=== PATIENT | male | born 1960 | race Caucasian/White ===

== ENCOUNTER 2018-07-13 05:18 | Inpatient (IN) ==
--- NOTE | 2018-06-12 12:38 | PAT Medication Instructions ---
Medication Instructions Date of Service June 12, 2018 Home Medications aspirin [Aspir-81] 81 mg PO QAM losartan-hydrochlorothiazide 0.5 tab PO QAM omega 1-sda-qfh-fish oil [Fish Oil] 3 cap PO QAM STOP taking 2 weeks before surgery (or as soon as possible if surgery is within 2 weeks) omega 5-lxm-veg-fish oil [Fish Oil] 3 cap PO QAM DO NOT take the morning of surgery losartan-hydrochlorothiazide 0.5 tab PO QAM Take morning of surgery With a small sip of water, OTHERWISE NOTHING TO EAT OR DRINK AFTER MIDNIGHT: aspirin [Aspir-81] 81 mg PO QAM Other Notes If you have any questions please call us at [phone] or [phone] or [phone] or [phone]
--- NOTE | 2018-06-12 12:58 | Anesthesiology Consultation ---
Date of Service June 12, 2018 Assessment & Plan (1) Encounter for pre-operative examination: Chart Review Chart Review: Acceptable Risk for Surgery and Patient seen in Pre Admission Testing Discussed case with Dr. Chua. OK to proceed. Consults Requested none Teaching & Discussion Pre-Anesthesia Teaching/Discussion Notes: Instructed NPO after midnight before surgery, except medications with 15 cc of water. Medication instructions provided according to the PAT guidelines. History Surgery Operation Date: 07/13/18 08:20 Proposed Procedures p Left Anterior Total Hip Arthroplasty - Jadon Sims DO Height/Weight Height: 5 ft 7 in Weight: 85 kg Allergies Allergy/AdvReac Type Severity Reaction Status Date / Time Pignfhp-Kab-Kyc Reductase Allergy MUSCLE Verified 06/05/18 07:45 Inhibitor ACHES Medications Home Medications Medication Instructions Recorded Confirmed Last Taken aspirin [Aspir-81] 81 mg PO QAM 06/05/18 06/05/18 Unknown losartan-hydrochlorothiazide 0.5 tab PO QAM 06/05/18 06/05/18 Unknown omega 7-uaf-jsx-fish oil [Fish Oil] 3 cap PO QAM 06/05/18 06/05/18 Unknown Past Medical History Medical History Hypertension Waldenstrom's disease FOLLOWS WITH PHYSICIAN AT [facility] ([place]) NEXT APPT IS 07/10/18 Past Surgical History Surgical History H/O basal cell carcinoma excision History of colonoscopy History of herniorrhaphy X3 History of tonsillectomy Past Anesthesia History No Hx of Anesthesia Complications and No Family Hx of Anesthesia Complications History of PONV No Motion Sickness Screening History of Motion Sickness: No Social History Smoking Status: Former smoker tobacco type: cigarettes Smoking cigarettes per day: QUIT 20 YEARS AGO Do You Dip or Chew Tobacco: No Hx Alcohol Use: Yes alcohol intake frequency: a few times a month Hx Substance Use: No substance use type: does not use Exercise / Class Metabolic Activity II 4-5 Yardwork/Stairs/Walk up hill (Works in a restaraunt. Able to climb [place], although currently slowed down due to hip pain. Denies CP or SOB. ) Review of Systems Patient denies chest pain, shortness of breath, dyspnea on exertion, reflux, cough, wheezing, palpitations. +Joint pain (Hips, generalized arthritis) Physical Exam Vital Signs BP: 127/80 P: 65 R: 16 T: 97.9 SPO2: 98% on RA ENMT Thyromental Distance: > or= 3.5 Finger Breadths (4) Mallampati Class: I Neck normal visual inspection, trachea midline and + facial hair ((Advised)); neck extension not limited Respiratory normal respiratory effort Auscultation: lungs clear to auscultation bilaterally Cardiovascular Rate/Rhythm: regular rate and regular rhythm Heart Sounds: no murmur Vessels: no carotid bruit Neurologic moves all extremities Psychiatric Orientation: alert and oriented x 3 Testing Electrocardiogram Date: 06/12/18 Findings: + NSR @ (61) Chest X-Ray Date: 06/12/18 FINDINGS: The cardiac and mediastinal contours are normal. There is no evidence of focal pulmonary consolidation. There is no evidence of failure. No pleural effusions are visualized. There is an 11 mm rounded opacity at the right lung base on the PA film. This is not visualized in the lateral film and therefore may represent a nipple shadow. A repeat study with nipple markers is recommended. IMPRESSION: 11 mm opacity at the right lung base, possibly representing a nipple shadow. A repeat study with nipple markers is recommended. Surgeon's office sent over records from 2013 when patient was following with pulmonology. Patient has a known RLL nodule that has been followed and is stable. Echocardiogram Date: 05/14/13 EF: 68% LV Function: normal RWMA: + none Other Findings: no LVH and no diastolic dysfunction Valvular Disease: + MR ([place]) Normal mitral valve structure. Mild mitral regurgitation is present. Normal tricuspid valve structure and function. Trace physiological tricuspid regurgitation is present. Estimated right ventricular systolic pressure is 74 mmHg. The left ventricle is normal in size, wall thickness, wall motion, and contractility. Left ventricular diastolic filling pattern is normal. Other Testing Laboratory Results Blood Type AB Positive 06/12/18 13:16 Antibody Screen NEGATIVE 06/12/18 13:16 [facility] 06/29/18 WBC: 5.03 H/H: 13.1 L/ 39.9 L PLATELETS: 261 SODIUM: 143 POTASSIUM: 4.3 CHLORIDE: 103 CO2: 29 BUN: 24 H CREATININE: 0.7 GLUCOSE: 104 PT: 13.0 PTT: 34 INR: 1.00
--- NOTE | 2018-06-12 13:35 | XRay Report ---
XR chest Pre-admission PA/Lat CLINICAL HISTORY: Preoperative chest COMPARISON STUDY: No previous studies for comparison. FINDINGS: The cardiac and mediastinal contours are normal. There is no evidence of focal pulmonary co nsolidation. There is no evidence of failure. No pleural effusions are visualized.[ There is an 11 mm rounded opacity at the right lung base on the PA film. This is not visualized in the lateral film an d therefore may represent a nipple shadow. A repeat study with nipple markers is recommended. IMPRESSION: 11 mm opacity at the right lung base, possibly representing a nipple shadow. A repeat curt dy with nipple markers is recommended. Electronically signed by: Seferino Wright M.D. 06/12/2018 1:33 PM
--- NOTE | 2018-07-10 15:33 | History & Physical Report ---
Date of Service July 10, 2018 Assessment & Plan (1) Osteoarthritis of left hip: We will proceed with a left anterior total hip arthroplasty. Postoperatively he will be started on aspirin for DVT prophylaxis. He will be kept in the hospital overnight for postop medical management. He plans to decide outpatient physical therapy with case management. Present on Admission?: Yes History of Present Illness Chief Complaint: Primary osteoarthritis of the left hip Primary Care Provider: James William MD Guillermo is a pleasant 58-year-old male who is been dealing with chronic increasing left hip and groin pain. X-rays and clinical examination have been diagnostic for primary Janelle arthritis of the left hip. After failing conservative treatment, he has elected proceed with a left anterior total hip arthroplasty. Allergies Allergy/AdvReac Type Severity Reaction Status Date / Time Ktiehus-Mta-Slk Reductase Allergy MUSCLE Verified 06/05/18 07:45 Inhibitor ACHES Home Medications Home Medications Medication Instructions Recorded Confirmed Type aspirin [Aspir-81] 81 mg PO QAM 06/05/18 06/05/18 History losartan-hydrochlorothiazide 0.5 tab PO QAM 06/05/18 06/05/18 History omega 0-dbd-uin-fish oil [Fish Oil] 3 cap PO QAM 06/05/18 06/05/18 History Past Med/Surg History Medical History Hypertension Waldenstrom's disease FOLLOWS WITH PHYSICIAN AT [facility] ([place]) NEXT APPT IS 07/10/18 Surgical History H/O basal cell carcinoma excision History of colonoscopy History of herniorrhaphy X3 History of tonsillectomy Social History Preferred Language: Panamanian Communication Ability: Effective Market Gardener Required: No Beliefs That Will Affect Care: None Current Living Situation: Spouse Other Information That Helps Us Care for You: No Feels Safe at Home: Yes Safety Concerns: Feels Safe At This Time Smoking Status: Former smoker Tobacco Type: cigarettes Cigarettes Per Day: QUIT 20 YEARS AGO Do You Dip or Chew Tobacco: No Second Hand Exposure: No Tobacco Cessation Education Requested by Patient: No Hx Alcohol Use: Yes Hx Substance Use: No Review of Systems All systems reviewed & are unremarkable except as noted in HPI & below Physical Exam Constitutional: WD/WN, vitals as above Eyes: PERRL, conjunctivae normal, anicteric sclerae ENMT: external ear and nose normal, oropharynx normal Neck: trachea midline, no thyromegaly Respiratory: normal respiratory effort Cardiovascular: RRR, no murmur, no edema Gastrointestinal (Abdomen): normal bowel sounds, soft, nontender, no hepatosplenomegaly Musculoskeletal: Physical examination of the left hip reveals decreased range of motion with flexion, internal and external rotation. There is significant groin pain with forced internal rotation of the hip his leg lengths are essentially equal. Psychiatric: A+Ox3, euthymic affect Results & Data Diagnostic Findings Radiographs of the left hip and pelvis demonstrate advanced osteoarthritis with joint space narrowing osteophyte formation and dtix-ba-hrcu articulation.
[2018-07-13] MEDS ORDERED: ROPIVACAINE 0.5% HCL/PF 150 MG, BUPIVACAINE 0.5% MPF 30 ML, EPINEPHrine 30MG/30ML (OR U... INFIL SCH (06:00)
[2018-07-13] MEDS ORDERED: FAMOTIDINE 20 MG TAB PO SCH (06:00)
[2018-07-13] MEDS ORDERED: CEFAZOLIN 2000MG 2,000 MG/15 ML SYR IV SCH (06:00)
[2018-07-13] MEDS ORDERED: GABAPENTIN 300 MG x 2 PO SCH (06:00)
[2018-07-13] MEDS ORDERED: TRANEXAMIC ACID 1,000 MG **IV Pre-op IV SCH (06:00)
[2018-07-13] MEDS ORDERED: LR 60ML/HR IV SCH (06:00)
[2018-07-13] MEDS ORDERED: ACETAMINOPHEN 500 MG TAB PO SCH (06:00)
[2018-07-13] MEDS ORDERED: LR 500ML BOLUS, THEN 15ML/HR IV SCH (06:00)
[2018-07-13] MEDS ORDERED: ONDANSETRON INJ 2 MG/ML 2 ML VIAL IV PRN ×2 (06:19→10:09)
[2018-07-13] MEDS ORDERED: ATROPINE SULFATE 0.1 MG/ML 10ML SYR IV PRN (06:19)
[2018-07-13] MEDS ORDERED: PHENYLEPHRINE 100MCG/ML 5ML SYR IV PRN (06:19)
[2018-07-13] MEDS ORDERED: ePHEDrine sulfate 50 MG/ML AMP IV PRN (06:19)
[2018-07-13] MEDS ORDERED: HYDROmorphone INJ 1 MG/ML SYRINGE IV PRN (06:19)
[2018-07-13] MEDS ORDERED: PROMETHAZINE HCL 12.5 MG in SODIUM CHLORIDE 0.9% 50 ML IV PRN (06:19)
[2018-07-13] MEDS ORDERED: fentaNYL citrate 100 MCG/2 ML VIAL IV PRN (06:19)
[2018-07-13] MEDS ORDERED: BUPIVACAINE 0.5 % 5 MG/1 ML PF 10ML VIAL ONE (06:26)
[2018-07-13] MEDS ORDERED: TRANEXAMIC ACID 1,000 MG **IV Intra-op IV SCH (06:30)
[2018-07-13] MEDS ORDERED: ORTHO JOINT ANESTHETIC ONE (06:30)
[2018-07-13] MEDS ORDERED: POVIDONE-IODINE OP SOLN 30 ML BTL ONE (06:30)
[2018-07-13] MEDS ORDERED: LIDOCAINE HCL 2% 2 ML VIAL/AMP(20MG/ML) INFIL ONE (06:34)
[2018-07-13] MEDS ORDERED: PROPOFOL IV EMULSION 10 MG/ML 20 ML VIAL IV ONE ×3 (06:34→08:18)
[2018-07-13] MEDS ORDERED: MIDAZOLAM HCL 1 MG/ML 2ML VIAL ONE ×2 (06:35→07:13)
[2018-07-13] MEDS ORDERED: fentaNYL citrate 100 MCG/2 ML VIAL ONE (06:35)
--- NOTE | 2018-07-13 06:50 | History & Physical Bridge Note ---
Date of Service July 13, 2018 History & Physical Bridge Note I have examined the patient, reviewed the History & Physical and in the interval since the performance of the History & Physical I have noted the following changes of clinical significance: no changes noted
[2018-07-13] MEDS ORDERED: ONDANSETRON INJ 2 MG/ML 2 ML VIAL ONE (07:17)
[2018-07-13] MEDS ORDERED: DEXAMETHASONE SOD INJ 4 MG/ML VIAL ONE (07:17)
[2018-07-13] MEDS ORDERED: ePHEDrine sulfate 50 MG/ML SYR ONE (07:32)
--- NOTE | 2018-07-13 08:43 | Operative Report ---
Post Operative Report Pre & Post Diagnosis Operation Date: 07/13/18 07:00 Pre-Op Diagnosis: LEFT HIP DEGENERATIVE JOINT DISEASE Post-Op Diagnosis: LEFT HIP DEGENERATIVE JOINT DISEASE Procedure Operation Date: 07/13/18 07:00 Actual Procedures p Left Anterior Total Hip Arthroplasty(Left) - Jadon Sims DO Surgeon Jadon Sims DO Data Processing Specialist Jadon Chan PAC Estimated Blood Loss 300 Findings Consistent with Post-Op Diagnosis Specimens Left femoral head Complications none Disposition Disposition: Recovery Room Indications Guillermo is a pleasant 58-year-old male who presented my office with chronic increasing left hip and groin pain. X-rays and clinical examination were di agnostic for primary osteoarthritis of the left hip. After failing conservative treatment, he elected to proceed with a left anterior total hip arthroplasty. Description of Procedure Implants used Biomet Taperloc total hip arthroplasty system with a size 12 standard offset Taperloc stem, a 52 mm G7 cup with a 25mm screw, an E1 polyethylene liner, a 36 mm ceramic head with a +3 neck. Patient arrived at the hospital for the above procedure. They were seen in the preoperative holding area and the operative extremity was identified and signed. They were given a spinal anesthetic. They were given a preoperative antibiotic and TXA. They were taken back To the operating room and laid on the table in the supine position. The leg was brought out through a Puristst leg positioner. The hip was then prepped and draped in sterile fashion. A timeout was done and the patient in upper extremities properly identified. An anterior approach was used. Dissection was taken down through the fascia and the tensor muscle belly was retracted laterally and the rectus was retracted medially. The circumflex vessels were identified and ligated. The capsule was then incised and tagged for later repair. The femoral neck was then cut and the femoral head was removed. The acetabulum was exposed. Time was spent doing a complete circumferential labral release. Sequential reaming of the acetabulum up to a size 51 reamer was done. Final reamings were done under fluoroscopy to ensure appropriate version. A Biomet 52 mm G7 cup was then impacted into place. A single 25 mm screw was placed. The E1 polyethylene liner was then snapped into place. Surrounding soft tissues were then injected with 100 cc of an orthopedic pain control cocktail. The proximal femur was then exposed. Sequential broaching up to a size 12 broach was done. Off that broach a size 36 head with a +3 neck was trialed. The hip was reduced and fluoroscopic images showed anatomic alignment of the implants in acceptable length. The broach was removed. The final size 12 standard offset Taperloc stem was then impacted into place. A ceramic 36 mm head with a +3 neck was then impacted into place in the hip was reduced. Final fluoroscopic images showed anatomic reduction of the hip. The capsule was then closed with #1 Vicryl suture. A dilute betadyne lavage was then done for 3 minutes. The joint was then irrigated with normal saline solution. The fascia was closed with #1 PDS suture. Skin was closed with 2-0 Vicryl, yfn, and a Pat VAC dressing. The patient was then transferred to a hospital bed and taken to the post anesthesia care unit in stable condition. They tolerated the procedure well. I attest to the content of the Intraoperative Record and any orders documented therein. Any exceptions are noted below.
--- NOTE | 2018-07-13 09:47 | XRay Report ---
XR hip 1V LT w pelvis CLINICAL HISTORY: Postop examination COMPARISON: Thyroid 2019 DISCUSSION: There are postsurgical changes of a total left hip arthroplasty. The femoral and acetabul ar components appear well seated. There is no dislocation. There are overlying skin yfn. There is soft tissue gas consistent with recent surgery. There are advanced arthritic changes present within the right hip. IMPRESSION: Postsurgical changes of a total left hip arthroplasty. Electronically signed by: Seferino Wright M.D. 07/13/2018 9:45 AM
--- NOTE | 2018-07-13 10:02 | Fluoroscopy Report ---
FL hip LT 1V CLINICAL HISTORY: LT ANTERIOR HIP ARTHROPLASTY COMPARISON STUDY: 2019 FLUOROSCOPY TIME: 33 seconds. NUMBER OF FLUOROSCOPIC IMAGES: 2 FINDINGS: 2 intraoperative fluoroscopic spot images were acquired during performance of a total left hip arthroplasty. Image #1 demonstrates surgical resection of left femoral head. There is a prostheti c acetabular cup. Image #2 demonstrates both femoral and acetabular components of the implant. There is no dislocation. IMPRESSION: Intraoperative fluoroscopic spot images obtained during a total left hip arthroplasty Electronically signed by: Seferino Wright M.D. 07/13/2018 10:01 AM
[2018-07-13] MEDS ORDERED: BISACODYL 10 MG SUPP PR PRN (10:09)
[2018-07-13] MEDS ORDERED: OXYCODONE HCL IR 5 MG TAB (IMMEDIATE RELEASE) PO PRN (10:09)
[2018-07-13] MEDS ORDERED: MAGNESIUM HYDROXIDE SUSP 30 ML UDC PO PRN (10:09)
[2018-07-13] MEDS ORDERED: METOCLOPRAMIDE HCL INJ 5 MG/ML 2 ML VIAL IV PRN (10:09)
[2018-07-13] MEDS ORDERED: NALOXONE HCL 0.4 MG/1 ML VIAL/CARP IV PRN (10:09)
[2018-07-13] MEDS ORDERED: HYDROmorphone INJ 0.5 MG/0.5 ML SYR IV PRN (10:09)
--- NOTE | 2018-07-13 10:24 | Anesthesiology Progress Note ---
Date of Service July 13, 2018 Anesthesia Post Procedure Vital Signs Vital Signs: Temp Pulse Pulse Resp BP Pulse Ox 07/13/18 10:00 36.3 C L 54 L 20 123/66 99 07/13/18 09:50 53 L 17 130/80 100 07/13/18 09:40 53 L 13 102/63 97 07/13/18 09:30 62 16 110/70 94 07/13/18 09:20 53 L 15 105/63 99 07/13/18 09:10 56 L 12 108/66 100 07/13/18 09:00 36 C L 60 13 110/52 L 100 07/13/18 05:43 36.4 C L 73 20 98 Pain Intensity Left Hip: Pain Intensity: 5 Transfer of Care Handoff Completed per policy Notes Mental Status: alert / awake / arousable Patient Amnestic to Procedure: Yes Nausea / Vomiting: adequately controlled Pain: adequately controlled Airway Patency, RR, SpO2: stable & adequate BP & HR: stable & adequate Neuraxial Anesthesia: was administered and sensory block is resolving Anesthetic Complications: no major complications apparent Notes: Awake, doing well, VSS.
[2018-07-13] MEDS ORDERED: SODIUM CHLORIDE 0.9% 1000ML 1,000 ML IV SCH (10:45)
[2018-07-13] MEDS: KETOROLAC 30 MG/ML VIAL IV SCH ×3 (11:17→22:19)
[2018-07-13] MEDS: DOCUSATE SODIUM 100 MG CAP PO SCH ×2 (11:17→20:56)
[2018-07-13] MEDS: ASPIRIN 81 MG ECTAB PO SCH ×2 (11:18→20:56)
[2018-07-13] MEDS: MULTIVITAMIN TAB PO SCH (11:18)
[2018-07-13] MEDS: LOSARTAN/HCTZ 50/12.5MG TAB PO SCH (11:18)
[2018-07-13] MEDS: ACETAMINOPHEN 500 MG TAB PO SCH ×2 (13:41→20:56)
[2018-07-13] MEDS: CEFAZOLIN 2000MG 2,000 MG/15 ML SYR IV SCH ×2 (14:31→22:19)
[2018-07-13] MEDS ORDERED: SENNA 8.6 MG TAB PO SCH (21:00)
[2018-07-14] MEDS: ACETAMINOPHEN 500 MG TAB PO SCH (05:05)
[2018-07-14] MEDS: KETOROLAC 30 MG/ML VIAL IV SCH ×2 (05:05→10:29)
[2018-07-14 06:35] LABS: Basophils # (auto) 0.01 K/uL (0-0.2); Basophils % (auto) 0.1 %; Eosinophils # (auto) 0.05 K/uL (0-0.5); Eosinophils % (auto) 0.3 %; Hematocrit (blood only) 33.4 % (42-52); Hemoglobin 11.2 g/dL (14.0-18.0); Immature Granulocytes # (auto) 0.05 K/uL (0.00-0.02); Immature Granulocytes % (auto) 0.3 %; Lymphocytes # (auto) 2.42 K/uL (1.2-3.4); Lymphocytes % (auto) 15.8 %; Mean Corpuscular Hgb Conc 33.5 g/dL (32-36); Mean Corpuscular Volume 91.8 fL (80-100); Mean Platelet Volume 9.2 fL (7.4-10.4); Monocytes # (auto) 1.97 K/uL (0.11-0.59); Monocytes % (auto) 12.9 %; Neutrophils # (auto) 10.77 K/uL (1.4-6.5); Neutrophils % (auto) 70.6 %; Platelet Count 222 K/uL (130-400); RDW Coefficient of Variation 13.8 % (11.5-14.5); RDW Standard Deviation 46.2 fL (36.4-46.3); Red Blood Count 3.64 M/uL (4.7-6.1); White Blood Count 15.27 K/uL (4.8-10.8)
[2018-07-14 07:07] LABS: Calcium 8.5 mg/dl (8.5-10.1); Creatinine Clr Calc Pharmacy 83.8 ml/min; Est GFR (African American) 97.4; Est GFR (Non-African American) 84.1; Potassium 4.2 mmol/L (3.5-5.1)
--- NOTE | 2018-07-14 07:12 | Orthopedic Progress Note ---
Date of Service July 14, 2018 Assessment & Plan (1) Osteoarthritis of left hip: Overall is doing very well. Is not having much pain in the left hip. He is been up and ambulating around the nurses station. He will be seen by physical therapy this morning for ambulation and range of motion exercises. He can be discharged home later today. He will follow-up with orthopedics in 2 weeks. He is going to discuss home or outpatient physical therapy with case management this morning. Present on Admission?: Yes Lizzie Li was seen and examined at bedside this morning. Overall he is doing extremely well. Is not having any pain in his left hip. He is happy with his progress at this point. He has been already ambulating around the nurses station. He has no complaints. Physical Exam Musculoskeletal: On physical examination of the left hip, the Pat VAC dressing is to suction. His leg lengths are equal. He is active dorsiflexion and plantarflexion of his left ankle. Sensations intact throughout. Results & Data Vital Signs (Past 12 Hours) Vital Signs Temp Pulse Resp BP Pulse Ox 07/14/18 04:00 36.6 C 70 18 109/67 98 07/13/18 23:08 36.5 C 60 16 107/70 99 Laboratory Results H & H 07/14/18 Range/Units 06:23 Hgb 11.2 L (14.0-18.0) g/dL Hct 33.4 L (42-52) % Diagnostic Findings Postoperative x-rays of the left hip show the prosthesis to be in anatomic alignment without any evidence of fracture, dislocation, or loosening.
--- NOTE | 2018-07-14 07:13 | Discharge Summary ---
Date of Service July 14, 2018 Admission HPI Per Admitting Provider Guillermo is a pleasant 58-year-old male who is been dealing with chronic increasing left hip and groin pain. X-rays and clinical examination have been diagnostic for primary Janelle arthritis of the left hip. After failing conservative treatment, he has elected proceed with a left anterior total hip arthroplasty. Specialty Data Orthopedic H & H 07/14/18 Range/Units 06:23 Hgb 11.2 L (14.0-18.0) g/dL Hct 33.4 L (42-52) % Discharge Data Consultations 07/14/18 08:00 Consult Case Management - Discharge Planning Routine Procedures Performed Operation Date: 07/13/18 07:00 Actual Procedures p Left Anterior Total Hip Arthroplasty(Left) - Jadon Sims DO Hospital Course (1) Osteoarthritis of left hip: On July 13, 2018 Guillermo arrived at [facility] and underwent a left anterior total hip arthroplasty without complication. He had a spinal anes thetic. Postoperatively he was started on aspirin for DVT prophylaxis and discharged to general orthopedic floors. His hospital course was uneventful. On postop day #1 his H&H was stable and his pain was well controlled. He was already walking around the nurses station. He was seen by physical therapy. He was then discharged to home. He will follow-up with orthopedics in 2 weeks. Discharge Instructions Home Medications Medication Instructions Recorded Confirmed aspirin [Aspir-81] 81 mg PO QAM 06/05/18 07/13/18 losartan-hydrochlorothiazide 0.5 tab PO QAM 06/05/18 07/13/18 omega 4-tzw-cln-fish oil [Fish Oil] 3 cap PO QAM 06/05/18 07/13/18 multivitamin [Multiple Vitamins] 1 tab PO DAILY 07/13/18 07/13/18 Previous Rx's Medication Instructions Recorded aspirin [Ecotrin Low Strength] 81 mg PO BID #84 tab 07/14/18 oxycodone 5 - 10 mg PO Q4H PRN #40 tab 07/14/18
--- NOTE | 2018-07-14 08:22 | Anesthesiology Progress Note ---
Date of Service July 14, 2018 Anesthesia Post Procedure Vital Signs Vital Signs: Temp Pulse Pulse Pulse Resp BP Pulse Ox 07/14/18 07:22 36.7 C 52 L 15 100/63 100 07/14/18 04:00 36.6 C 70 18 109/67 98 07/13/18 23:08 36.5 C 60 16 107/70 99 07/13/18 19:03 36.6 C 71 18 113/64 97 07/13/18 15:26 36.3 C L 59 L 18 110/66 98 07/13/18 12:15 64 16 103/65 97 07/13/18 11:05 61 16 108/70 99 07/13/18 10:45 57 L 16 107/68 100 07/13/18 10:15 36.5 C 56 L 18 116/79 94 07/13/18 10:00 36.3 C L 54 L 20 123/66 99 07/13/18 09:50 53 L 17 130/80 100 07/13/18 09:40 53 L 13 102/63 97 07/13/18 09:30 62 16 110/70 94 07/13/18 09:20 53 L 15 105/63 99 07/13/18 09:10 56 L 12 108/66 100 07/13/18 09:00 36 C L 60 13 110/52 L 100 Pain Intensity Left Hip: Pain Intensity: 5 Transfer of Care Handoff Completed per policy Notes Mental Status: alert / awake / arousable Patient Amnestic to Procedure: Yes Nausea / Vomiting: adequately controlled Pain: adequately controlled Airway Patency, RR, SpO2: stable & adequate BP & HR: stable & adequate Neuraxial Anesthesia: was administered and sensory block is resolving Anesthetic Complications: no major complications apparent Notes: POD #1. Doing well. Has been OOB, tolerating PO well. No complaints. VSS
[2018-07-14] MEDS ORDERED: OMEGA-3 (PURIFIED FISH OIL) 1 GM CAP PO SCH (09:00)
[2018-07-14] MEDS: ASPIRIN 81 MG ECTAB PO SCH (09:20)
[2018-07-14] MEDS: MULTIVITAMIN TAB PO SCH (09:20)
[2018-07-14] MEDS: DOCUSATE SODIUM 100 MG CAP PO SCH (09:20)
[2018-07-14] MEDS: LOSARTAN/HCTZ 50/12.5MG TAB PO SCH (09:23)
== END 2018-07-14 11:25 | disposition home or self-care (01) | DRG 470 ==
LOC: ASU 05:18 → PAT 05:18 → 3E 09:03

== ENCOUNTER 2018-11-09 05:11 | Inpatient (IN) ==
--- NOTE | 2018-10-23 16:36 | PAT Medication Instructions ---
Medication Instructions Date of Service October 23, 2018 Home Medications Medication Instructions Recorded oxycodone 5 - 10 mg PO Q4H PRN #40 tab 07/14/18 losartan-hydrochlorothiazide 0.5 tab PO QAM omega 3-jdu-hyv-fish oil [Fish Oil] 3 cap PO QAM multivitamin [Multiple Vitamins] 1 tab PO DAILY oxycodone 5 - 10 mg PO Q4H PRN aspirin [Ecotrin Low Strength] 81 mg PO QAM STOP taking 2 weeks before surgery (or as soon as possible if surgery is within 2 weeks) omega 6-bgu-hvk-fish oil [Fish Oil] 3 cap PO QAM DO NOT take the morning of surgery losartan-hydrochlorothiazide 0.5 tab PO QAM multivitamin [Multiple Vitamins] 1 tab PO DAILY Take morning of surgery With a small sip of water, OTHERWISE NOTHING TO EAT OR DRINK AFTER MIDNIGHT: oxycodone 5 - 10 mg PO Q4H PRN (okay to take up to 4 hours prior to surgery if needed) Take evening before surgery oxycodone 5 - 10 mg PO Q4H PRN (if needed) Other Notes If you have any questions please call us at [phone] or [phone] or [phone] or [phone]
--- NOTE | 2018-10-24 13:20 | Anesthesiology Consultation ---
Date of Service October 24, 2018 Assessment & Plan (1) Encounter for pre-operative examination: Chart Review Chart Review: Acceptable Risk for Surgery (pending preop testing (labs)) and Patient seen in Pre Admission Testing Teaching & Discussion Pre-Anesthesia Teaching/Discussion Notes: Instructed NPO after midnight before surgery,except medications with 15 cc of water. Medication instructions provided according to the PAT guidelines. History Surgery Operation Date: 11/09/18 10:00 Proposed Procedures p Right Anterior Hip Arthroplasty - Jadon Sims DO Height/Weight Height: 5 ft 7.5 in Weight: 83.1 kg Allergies Allergy/AdvReac Type Severity Reaction Status Date / Time Solnvac-Cjc-Mwm Reductase Allergy MUSCLE Verified 10/15/18 07:49 Inhibitor ACHES Medications Home Medications Medication Instructions Recorded Confirmed Last Taken losartan-hydrochlorothiazide 0.5 tab PO QAM 06/05/18 10/15/18 07/12/18 07:00 omega 9-agn-hvy-fish oil [Fish Oil] 3 cap PO QAM 06/05/18 10/15/18 06/28/18 07:00 multivitamin [Multiple Vitamins] 1 tab PO DAILY 07/13/18 10/15/18 07/12/18 07:00 oxycodone 5 - 10 mg PO Q4H PRN #40 tab 07/14/18 10/15/18 Unknown aspirin [Ecotrin Low Strength] 81 mg PO QAM 10/15/18 10/15/18 Unknown Past Medical History Medical History Hypertension Pulmonary nodule RLL (chronic dating back to 2013 per records) 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 ([place])- no medication at present time Exercise / Class Metabolic Activity II 4-5 Yardwork/Stairs/Walk up hill Past Surgical History Surgical History H/O basal cell carcinoma excision History of colonoscopy History of herniorrhaphy X3 - right and left inguinal History of left hip replacement 07/13/18: SAB x 1 at L3-L4 at [facility] History of tonsillectomy Patient developed fever 3 days after left hip replacement- determined to be cellulitis of left lower extremity- treated with antibiotics Past Anesthesia History No Hx of Anesthesia Complications and No Family Hx of Anesthesia Complications History of PONV No Hx of PONV and No Hx of Motion Sickness Social History Smoking Status: Never smoker tobacco type: cigarettes Smoking cigarettes per day: QUIT 20 YEARS AGO Do You Dip or Chew Tobacco: No Hx Alcohol Use: Yes Alcohol type: beer alcohol intake frequency: holidays/special occasions only Hx Substance Use: No substance use type: does not use Review of Systems Patient denies chest pain, shortness of breath, dyspnea on exertion, reflux, cough, wheezing, palpitations. Physical Exam Vital Signs VITALS BP 115/69 P 63 TEMP 98.3 SP02 97%RA RESP 16 PHYSICAL Full neck and c-spine range of motion. Full TMJ range of motion. TMD 3.5 finger breaths Mallampati Score 1 Dentition: missing molar Lungs: clear throughout to auscultation Cardiac: regular rate and rhythm, no murmurs noted Spine: normal Carotid arteries: negative bruit Extremities: no edema Testing Laboratory Results 10/03/18 WBC 6.95 H/H 12.6/40.7 PLATELETS 320 SODIUM 141 POTASSIUM 4.6 CHLORIDE 102 CO2 29 BUN 17 CREATININE 0.7 GLUCOSE 111 Electrocardiogram Date: 06/12/18 Findings: + NSR @ (61) Chest X-Ray Date: 07/16/18 No acute process. 11 mm opacity of the lateral right lung base re-demonstrated, possibly front desk representative of a nipple shadow. (Area consistent with known pulmonary nodule which has been under surveillance x years; per patient, advised that due to stability no further monitoring needed. PCP monitoring). Echocardiogram Date: 05/14/13 EF: 68% LV Function: normal RWMA: + none Other Findings: no LVH and no diastolic dysfunction Valvular Disease: + MR (Mild) Normal mitral valve structure. Mild mitral regurgitation is present. Normal tricuspid valve structure and function. Trace physiological tricuspid regurgitation is present. Estimated right ventricular systolic pressure is 74 mmHg. The left ventricle is normal in size, wall thickness, wall motion, and contractility. Left ventricular diastolic filling pattern is normal.
[2018-10-24 15:58] LABS: Partial Thromboplastin Ratio 1.1; Partial Thromboplastin Time 29.2 Seconds (21.0-31.0); Prothrombin Time 10.4 Seconds (9.0-12.0)
[2018-11-09] MEDS ORDERED: TRANEXAMIC ACID 1,000 MG **IV Pre-op IV SCH (06:00)
[2018-11-09] MEDS ORDERED: LR 60ML/HR IV SCH (06:00)
[2018-11-09] MEDS ORDERED: CEFAZOLIN 2000MG 2,000 MG/15 ML SYR IV SCH (06:00)
[2018-11-09] MEDS ORDERED: ACETAMINOPHEN 500 MG TAB PO SCH (06:00)
[2018-11-09] MEDS ORDERED: ROPIVACAINE 0.5% HCL/PF 150 MG, BUPIVACAINE 0.5% MPF 30 ML, EPINEPHrine 30MG/30ML (OR U... INSTIL SCH (06:00)
[2018-11-09] MEDS ORDERED: FAMOTIDINE 20 MG TAB PO SCH (06:00)
[2018-11-09] MEDS ORDERED: LR 500ML BOLUS, THEN 15ML/HR IV SCH (06:00)
[2018-11-09] MEDS ORDERED: GABAPENTIN 600 MG DOSE PO SCH (06:00)
[2018-11-09] MEDS ORDERED: BUPIVACAINE 0.5 % 5 MG/1 ML PF 10ML VIAL ONE (06:22)
--- NOTE | 2018-11-09 06:23 | History & Physical Bridge Note ---
Date of Service November 09, 2018 History & Physical Bridge Note I have examined the patient, reviewed the History & Physical and in the interval since the performance of the History & Physical I have noted the following changes of clinical significance: no changes noted
--- NOTE | 2018-11-09 06:26 | History & Physical Report ---
Date of Service November 09, 2018 Assessment & Plan (1) Osteoarthritis of right hip: We will proceed with a right anterior total hip arthroplasty. Postoperatively he will be placed on aspirin for DVT prophylaxis. He will be kept overnight in the hospital for postoperative medical management. He plans to use the [facility] physical therapy upon discharge. Present on Admission?: Yes History of Present Illness Chief Complaint: Primary osteoarthritis of the right hip Primary Care Provider: James William MD Guillermo is a pleasant 58-year-old male who is been dealing with chronic increasing right hip and groin pain. X-rays and clinical examination have been diagnostic for primary osteoarthritis of the right hip. After failing extensive conservative treatment, he has elected to proceed with a right anterior total hip arthroplasty. He does have a history of a left hip replacement done in June 2018. Allergies Allergy/AdvReac Type Severity Reaction Status Date / Time Ffoyqkx-Quq-Vng Reductase Allergy MUSCLE Verified 11/09/18 05:44 Inhibitor ACHES Home Medications Home Medications Medication Instructions Recorded Confirmed Type losartan-hydrochlorothiazide 0.5 tab PO QAM 06/05/18 10/15/18 History omega 7-zqa-bay-fish oil [Fish Oil] 3 cap PO QAM 06/05/18 11/09/18 History multivitamin [Multiple Vitamins] 1 tab PO DAILY 07/13/18 10/15/18 History oxycodone 5 - 10 mg PO Q4H PRN #40 tab 07/14/18 11/09/18 Rx aspirin [Ecotrin Low Strength] 81 mg PO QAM 10/15/18 11/09/18 History Past Med/Surg History Medical History Hypertension Pulmonary nodule RLL (chronic dating back to 2013 per records) 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 ([place])- no medication at present time Surgical History H/O basal cell carcinoma excision History of colonoscopy History of herniorrhaphy X3 - right and left inguinal History of left hip replacement 07/13/18: SAB x 1 at L3-L4 at [facility] History of tonsillectomy Social History Preferred Language: Luxembourgish Communication Ability: Effective 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 Beliefs That Will Affect Care: None Current Living Situation: Spouse Other Information That Helps Us Care for You: No Feels Safe at Home: Yes Safety Concerns: Feels Safe At This Time Smoking Status: Never smoker Tobacco Type: cigarettes ; Cigarettes Per Day: QUIT 20 YEARS AGO ; Do You Dip or Chew Tobacco: No ; Second Hand Exposure: No ; Tobacco Cessation Education Requested by Patient: No Hx Alcohol Use: Yes Alcohol type: beer Hx Substance Use: No Review of Systems All systems reviewed & are unremarkable except as noted in HPI & below Physical Exam Constitutional: WD/WN, vitals as above Eyes: PERRL, conjunctivae normal, anicteric sclerae ENMT: external ear and nose normal, oropharynx normal Neck: trachea midline, no thyromegaly Respiratory: normal respiratory effort Cardiovascular: RRR, no murmur, no edema Gastrointestinal (Abdomen): normal bowel sounds, soft, nontender, no hepatosplenomegaly Musculoskeletal: Physical examination of the right hip reveals decreased range of motion with flexion, internal and external rotation. There is significant groin pain with forced internal rotation of the hip his leg lengths are essentially equal. Psychiatric: A+Ox3, euthymic affect Results & Data Vital Signs (Past 12 Hours) Vital Signs Temp Pulse Resp BP Pulse Ox 11/09/18 05:37 36.6 C 71 20 153/87 H 96 Diagnostic Findings Radiographs of the right hip and pelvis demonstrate advanced osteoarthritis with joint space narrowing osteophyte formation and idls-vk-ladi articulation.
[2018-11-09] MEDS ORDERED: TRANEXAMIC ACID 1,000 MG **IV Intra-op IV SCH (06:30)
[2018-11-09] MEDS ORDERED: ORTHO JOINT ANESTHETIC ONE (06:36)
[2018-11-09] MEDS ORDERED: fentaNYL citrate 100 MCG/2 ML VIAL ONE (06:45)
[2018-11-09] MEDS ORDERED: MIDAZOLAM HCL 1 MG/ML 2ML VIAL ONE ×2 (06:45→07:00)
[2018-11-09] MEDS ORDERED: PROPOFOL IV EMULSION 10 MG/ML 20 ML VIAL IV ONE ×3 (06:45→08:13)
[2018-11-09] MEDS ORDERED: LIDOCAINE HCL 2% 2 ML VIAL/AMP(20MG/ML) INFIL ONE (06:45)
[2018-11-09] MEDS ORDERED: HYDROmorphone INJ 1 MG/ML SYRINGE IV PRN (06:56)
[2018-11-09] MEDS ORDERED: ATROPINE SULFATE 0.1 MG/ML 10ML SYR IV PRN (06:56)
[2018-11-09] MEDS ORDERED: fentaNYL citrate 100 MCG/2 ML VIAL IV PRN (06:56)
[2018-11-09] MEDS ORDERED: ePHEDrine sulfate 50 MG/ML AMP IV PRN (06:56)
[2018-11-09] MEDS ORDERED: ONDANSETRON INJ 2 MG/ML 2 ML VIAL IV PRN ×2 (06:56→10:33)
[2018-11-09] MEDS ORDERED: ONDANSETRON INJ 2 MG/ML 2 ML VIAL ONE (07:10)
[2018-11-09] MEDS ORDERED: ePHEDrine sulfate 50 MG/ML SYR ONE (07:49)
[2018-11-09] MEDS ORDERED: PHENYLEPHRINE 100MCG/ML 5ML SYR ONE (08:11)
--- NOTE | 2018-11-09 08:29 | Operative Report ---
Post Operative Report Pre & Post Diagnosis Operation Date: 11/09/18 07:00 Pre-Op Diagnosis: Right Hip Degenerative Joint Disease Post-Op Diagnosis: Right Hip Degenerative Joint Disease Procedure Operation Date: 11/09/18 07:00 Actual Procedures p Right Anterior Total Hip Arthroplasty--Uncemented(Right) - Jadon Sims DO Surgeon Jadon Sims DO Ict Teacher Jadon Chan PAC Estimated Blood Loss 250 Findings Consistent with Post-Op Diagnosis Specimens Right femoral head Complications none Disposition Disposition: Recovery Room Indications Guillermo is a pleasant 58-year-old male who presented my office with chronic increasing right groin pain. X-rays and clinical examination were diagnostic for advanced osteoarthritis of the right hip. After failing conservative treatment, he elected to proceed with a right total hip arthroplasty. He did have a left hip replacement done in June 2018. Description of Procedure Implants used Biomet Taperloc total hip arthroplasty system with a size 16 standard offset Taperloc stem, a 52 mm G7 cup with a 25mm screw, an E1 polyethylene liner, a 36 mm ceramic head with a 0 neck. Patient arrived at the hospital for the above procedure. They were seen in the preoperative holding area and the operative extremity was identified and signed. They were given a spinal anesthetic. They were given a preoperative antibiotic and TXA. They were taken back To the operating room and laid on the table in the supine position. The leg was brought out through a Puristst leg positioner. The hip was then prepped and draped in sterile fashion. A timeout was done and the patient in upper extremities properly identified. An anterior approach was used. Dissection was taken down through the fascia and the tensor muscle belly was retracted laterally and the rectus was retracted medially. The circumflex vessels were identified and ligated. The capsule was then incised and tagged for later repair. The femoral neck was then cut and the femoral head was removed. The acetabulum was exposed. Time was spent doing a complete circumferential labral release. Sequential reaming of the acetabulum up to a size 51 reamer was done. Final reamings were done under fluoroscopy to ensure appropriate version. A Biomet 52 mm G7 cup was then impacted into place. A single 25 mm screw was placed. The E1 polyethylene liner was then snapped into place. Surrounding soft tissues were then injected with 100 cc of an orthopedic pain control cocktail. The proximal femur was then exposed. Sequential broaching up to a size 16 broach was done. Off that broach a size 36 head with a 0 neck was trialed. The hip was reduced and fluoroscopic images showed anatomic alignment of the implants in acceptable length. The broach was removed. The final size 16 standard offset Taperloc stem was then impacted into place. A ceramic 36 mm head with a 0 neck was then impacted into place in the hip was reduced. Final fluoroscopic images showed anatomic reduction of the hip. The capsule was then closed with #1 Vicryl suture. A dilute betadyne lavage was then done for 3 minutes. The joint was then irrigated with normal saline solution. The fascia was closed with #1 PDS suture. Skin was closed with 2-0 Vicryl, yfn, and a Pat VAC dressing. The patient was then transferred to a hospital bed and taken to the post anesthesia care unit in stable condition. They tolerated the procedure well. I attest to the content of the Intraoperative Record and any orders documented therein. Any exceptions are noted below.
--- NOTE | 2018-11-09 08:55 | Fluoroscopy Report ---
FL hip RT 1V CLINICAL HISTORY: RIGHT ANTERIOR HIPhip arthroplasty COMPARISON STUDY: None FLUOROSCOPY TIME: 38 seconds NUMBER OF FLUOROSCOPIC IMAGES: 2 FINDINGS: Image intensifier support for a total right hip arthroplasty IMPRESSION: Image intensifier support for a total right hip arthroplasty. Anatomic alignment The above report was generated using voice recognition software. It may contain grammatical, syntax or spelling errors. Electronically signed by: Spencer Edmondson M.D. 11/09/2018 8:53 AM
--- NOTE | 2018-11-09 09:50 | Anesthesiology Progress Note ---
Date of Service November 09, 2018 Anesthesia Post Procedure Vital Signs Vital Signs: Temp Pulse Resp BP Pulse Ox 11/09/18 09:45 69 16 121/63 100 11/09/18 09:30 73 17 95/63 L 100 11/09/18 09:15 36.4 C L 60 12 111/63 99 11/09/18 09:05 61 14 96/58 L 99 11/09/18 08:55 36.5 C 78 14 103/58 L 98 11/09/18 05:37 36.6 C 71 20 153/87 H 96 Transfer of Care Handoff Completed per policy Notes Mental Status: alert / awake / arousable and participated in evaluation Patient Amnestic to Procedure: Yes Nausea / Vomiting: adequately controlled Pain: adequately controlled Airway Patency, RR, SpO2: stable & adequate BP & HR: stable & adequate Hydration State: stable & adequate Anesthetic Complications: no major complications apparent and Pt Satisfied with anesthetic care
--- NOTE | 2018-11-09 09:53 | XRay Report ---
XR hip 1V RT w pelvis CLINICAL HISTORY: IN PACU - A/P PELVIS and LATERAL HIP hip replacement COMPARISON: 07/13/2018 DISCUSSION: Anatomic alignment posttotal right hip arthroplasty. Could contact between prosthetic and underlying bone. Pre-existing total left hip prosthetic. Expected postoperative soft tissue change IMPRESSION: Anatomic alignment posttotal right hip arthroplasty. The above report was generated using voice recognition software. It may contain grammatical, syntax or spelling errors. Electronically signed by: Spencer Edmodnson M.D. 11/09/2018 9:52 AM
[2018-11-09] MEDS: SODIUM CHLORIDE 0.9% 1000ML 1,000 ML IV SCH ×2 (10:05→21:06)
[2018-11-09] MEDS ORDERED: METOCLOPRAMIDE HCL INJ 5 MG/ML 2 ML VIAL IV PRN (10:33)
[2018-11-09] MEDS ORDERED: HYDROmorphone INJ 0.5 MG/0.5 ML SYR IV PRN (10:33)
[2018-11-09] MEDS ORDERED: NALOXONE HCL 0.4 MG/1 ML VIAL/CARP IV PRN (10:33)
[2018-11-09] MEDS ORDERED: BISACODYL 10 MG SUPP PR PRN (10:33)
[2018-11-09] MEDS ORDERED: OXYCODONE HCL IR 5 MG TAB (IMMEDIATE RELEASE) PO PRN (10:33)
[2018-11-09] MEDS ORDERED: MAGNESIUM HYDROXIDE SUSP 30 ML UDC PO PRN (10:33)
[2018-11-09] MEDS: DOCUSATE SODIUM 100 MG CAP PO SCH ×2 (11:49→19:57)
[2018-11-09] MEDS: LOSARTAN/HCTZ 50/12.5MG TAB PO SCH (11:49)
[2018-11-09] MEDS: MULTIVITAMIN TAB PO SCH (12:33)
[2018-11-09] MEDS: ASPIRIN 81 MG ECTAB PO SCH ×2 (12:33→21:23)
[2018-11-09] MEDS: KETOROLAC 30 MG/ML VIAL IV SCH ×3 (12:33→23:38)
[2018-11-09] MEDS: ACETAMINOPHEN 500 MG TAB PO SCH ×2 (13:56→21:23)
[2018-11-09] MEDS: CLINDAMYCIN 600 MG in DEXTROSE 5% 50 ML IV SCH ×2 (13:57→21:23)
[2018-11-09] MEDS ORDERED: SENNA 8.6 MG TAB PO SCH (21:00)
[2018-11-10 06:05] LABS: Basophils # (auto) 0.03 K/uL (0-0.2); Basophils % (auto) 0.2 %; Eosinophils # (auto) 0.11 K/uL (0-0.5); Eosinophils % (auto) 0.7 %; Hemoglobin 10.3 g/dL (14.0-18.0); Immature Granulocytes # (auto) 0.03 K/uL (0.00-0.02); Immature Granulocytes % (auto) 0.2 %; Lymphocytes # (auto) 1.78 K/uL (1.2-3.4); Lymphocytes % (auto) 11.8 %; Mean Corpuscular Hgb Conc 32.2 g/dL (32-36); Mean Corpuscular Volume 89.9 fL (80-100); Mean Platelet Volume 9.2 fL (7.4-10.4); Monocytes # (auto) 2.28 K/uL (0.11-0.59); Monocytes % (auto) 15.1 %; Neutrophils # (auto) 10.82 K/uL (1.4-6.5); Platelet Count 210 K/uL (130-400); RDW Coefficient of Variation 14.4 % (11.5-14.5); RDW Standard Deviation 47.5 fL (36.4-46.3); Red Blood Count 3.56 M/uL (4.7-6.1); White Blood Count 15.05 K/uL (4.8-10.8)
[2018-11-10] MEDS: ACETAMINOPHEN 500 MG TAB PO SCH (06:21)
[2018-11-10] MEDS: KETOROLAC 30 MG/ML VIAL IV SCH ×2 (06:22→11:40)
[2018-11-10 06:34] LABS: Calcium 8.3 mg/dl (8.5-10.1); Creatinine Clr Calc Pharmacy 111.7 ml/min; Est GFR (African American) 116.4; Est GFR (Non-African American) 100.4; Potassium 4.7 mmol/L (3.5-5.1)
[2018-11-10] MEDS: LOSARTAN/HCTZ 50/12.5MG TAB PO SCH (08:39)
[2018-11-10] MEDS: ASPIRIN 81 MG ECTAB PO SCH (08:40)
[2018-11-10] MEDS: MULTIVITAMIN TAB PO SCH (08:40)
[2018-11-10] MEDS: DOCUSATE SODIUM 100 MG CAP PO SCH (08:40)
--- NOTE | 2018-11-10 08:55 | Orthopedic Progress Note ---
Date of Service November 10, 2018 Assessment & Plan (1) Osteoarthritis of right hip: Overall is doing very well. Is not having much pain in the right hip. He is on aspirin for DVT prophylaxis. He has already been up and ambulating the hallways. He will be seen by physical therapy today for ambulation and range of motion exercises. He can be discharged home later today. He will follow-up with orthopedics in 2 weeks. Present on Admission?: Yes Lizzie Li was seen and examined at bedside this morning. Overall is doing very well. Is not having much pain in the right hip. He has already been up and ambulating around the hallways. He has no complaints. Physical Exam Musculoskeletal: On physical examination of the right hip, the dressing is clean and dry. His leg lengths are equal. He has active dorsiflexion and plantarflexion of his right ankle. Sensations intact. Results & Data Vital Signs (Past 12 Hours) Vital Signs Temp Pulse Resp BP Pulse Ox 11/10/18 07:29 36.6 C 63 16 109/67 100 11/10/18 03:01 36.5 C 61 18 133/73 100 11/09/18 23:30 36.5 C 66 17 113/71 98 Laboratory Results H & H 11/10/18 Range/Units 05:17 Hgb 10.3 L (14.0-18.0) g/dL Hct 32.0 L (42-52) % Coagulation 10/24/18 Range/Units 13:28 INR 1.0 (0.9-1.1) Diagnostic Findings Postoperative x-rays of the right hip show the prosthesis to be in anatomic alignment without any evidence of fracture, dislocation, or loosening. PG Care Time/CCT Total # of Minutes Spent Total Time Spent with Patient: Total time spent is greater than 50[facility] (as documented) at patient's floor/unit and/or counseling patient:
--- NOTE | 2018-11-10 08:56 | Discharge Summary ---
Date of Service November 10, 2018 Admission HPI Per Admitting Provider Guillermo is a pleasant 58-year-old male who is been dealing with chronic increasing right hip and groin pain. X-rays and clinical examination have been diagnostic for primary osteoarthritis of the right hip. After failing extensive conservative treatment, he has elected to proceed with a right anterior total hip arthroplasty. He does have a history of a left hip replacement done in June 2018. Principal Diagnosis Right total hip arthroplasty Discharge Data Allergies Allergy/AdvReac Type Severity Reaction Status Date / Time Xueoszr-Buk-Dko Reductase Allergy MUSCLE Verified 11/09/18 05:44 Inhibitor ACHES Consultations 11/10/18 08:00 Consult Case Management - Discharge Planning Routine Procedures Performed Operation Date: 11/09/18 07:00 Actual Procedures p Right Anterior Total Hip Arthroplasty--Uncemented(Right) - Jadon Sims DO Ordered Studies 11/09/18 07:00 FL fluoroscopy <1hr Routine FL hip RT 1V Routine Hospital Course (1) Osteoarthritis of right hip: On November 09, 2018 he arrived at [facility] and underwent a right total hip arthroplasty without complication. He had a spinal anesthetic. Postoperatively he was started on aspirin for DVT prophylaxis and discharged to general orthopedic floors. His hospital course was uneventful. On postop day #1 his H&H was stable and his pain was well controlled. He was able to ambulate well with physical therapy. He was then discharged home. He will follow-up with orthopedics in 2 weeks. Total Time Total Time Spent Total Time Spent (In Minutes): 20 Discharge Plan Discharge Items Patient Disposition: Home - Self-Care Reason For Visit: Degenerative Joint Disease, Right Hip Discharge Diagnosis: Right total hip arthroplasty Activity: As commented below Non-emergency contact: Surgeon Call non-emergency contact if: your wound has increased redness and your wound has increased drainage Follow-up/Referrals: James William MD [Primary Care Provider] - Diet: Regular Addtl Attending Provider Instructions: Activity and Therapy Recommendations: * If you are using [facility] then therapy will be provided at your home until they feel you have accomplished all of your goals. * If you are using [facility] then Physical Therapy will be provided until they feel you are ready to start Outpatient Physical Therapy. * If you are not using home therapy then Outpatient Physical Therapy should start about 3-5 days from your day of surgery. Therapy will last about 6-10 weeks * You were shown a series of exercises in the hospital. Do these exercises three times each day including the exercises you were shown in physical therapy. * Get up and walk several times each day.~ For the first four weeks, try not to stand or walk for more than one hour at a time. If you do stand or walk for more than one hour, you will not hurt anything, but your leg will likely swell.~~ * As you feel comfortable, you may change from the walker or crutches to a cane and~then to independent walking. Medications: * Narcotic You will likely be sent home from the hospital with a prescription for the narcotic pain medication that worked best throughout your stay. * Aspirin Most patients will be required to take Aspirin 81mg twice a day for 6 weeks after surgery. This is obtained toer-kah-brjcmnd and a prescription is not necessary. * Other medications may be prescribed for specific circumstances. If you have any questions, please call the office at . * Resume previous home medications unless otherwise instructed TEDs/Elastic Stockings: The white elastic stockings help limit swelling and prevent blood clots from forming in your legs. The more you wear them, the more they work. Wear them for six weeks. Dressing Care: You will likely have a purple VAC dressing after surgery. This dressing will keep the incision dry and promote early healing. After about 7 days the batteries will wear out and the VAC will lose suction. Simply remove the dressing at that time and throw everything away, including the small suction machine. Then, you may leave the yfn open to air or cover them with a dry dressing so they do not rub on your pants. The yfn will be removed at your 2 week follow-up appointment. Showering: You may shower immediately with the purple VAC dressing. Let the shower spray hit your opposite side and slowly pat the plastic dry. Do not soak the dressing. After the dressing is removed you may shower normally with the yfn exposed. Let soapy water run over the yfn and pat them dry. Things To Watch For: * Drainage from the incision site that occurs more than one week after your surgery. * Increased redness at the incision site. * Fever above 102 degrees Fahrenheit. * Unusual chest pain or shortness of breath. * Call [facility] at with any of the above problems Follow-Up Visit: Follow-up with Dr. Sims 2-3 weeks after your day of surgery. An appointment was probably scheduled when you signed-up for surgery in the office. If you have any questions call Office Instructions: More detailed instructions as well as Frequently Asked Questions were provided in a folder by our office when you signed-up for surgery. Please review these instructions when you get home. If you have any further questions or concerns, please feel free to call the office at [phone] Pending Studies at Discharge: No Stand-Alone Forms: My [facility] Medications and DC Order Prescriptions: Continued losartan-hydrochlorothiazide 50-12.5 mg Tablet 0.5 tab PO QAM RF: 0 omega 9-cmo-pvj-fish oil [Fish Oil] 1,000 mg (120 mg-180 mg) Capsule 3 cap PO QAM RF: 0 multivitamin [Multiple Vitamins] Tablet 1 tab PO DAILY RF: 0 Changed oxycodone 5 mg Tablet 5 mg PO Q4H PRN (Reason: pain) Qty: 40 RF: 0 aspirin [Ecotrin Low Strength] 81 mg tablet,delayed release (DR/EC) 81 mg PO BID Qty: 0 RF: 0 Discharge Orders: Discharge Order (Routine); Ordered 11/10/18 Ordered By: Jadon Sims Admission Data Admit Date/Time: 11/09/18 08:51 Attending Provider: Jadon Sims Admit Provider: Jadon Sims Primary Care Provider: James William I.
[2018-11-10] MEDS ORDERED: OMEGA-3 (PURIFIED FISH OIL) 1 GM CAP PO SCH (09:00)
== END 2018-11-10 13:36 | disposition home or self-care (01) | DRG 470 ==
LOC: ASU 05:11 → 3E 10:17
DX: Z87.891 Personal history of nicotine dependence; Z79.82 Long term (current) use of aspirin; M16.11 Unilateral primary osteoarthritis, right hip; I10 Essential (primary) hypertension; Z79.899 Other long term (current) drug therapy

== ENCOUNTER 2024-08-30 20:19 | Inpatient (IN) ==
--- NOTE | 2024-08-30 20:28 | Emergency Department Note ---
Impression & Plan Hematuria, gross, Acute urinary retention ED Provider Note NAME: ODALYS MURPHY AGE: 64 SEX: M : 1960 ARRIVES VIA: Walk-In INFORMANT: Patient, ED PROVIDER(S): Richie Mccullough MD CHIEF COMPLAINT: Catheter obstruction, hematuria MEDICAL DECISION MAKING: Patient presents with the above. Patient did have postvoid residual reviewed which is unremarkable. I did speak with the on-call urologist Dr. Christianson given the patient's recurrence of hematuria and obstruction he does agree the patient should benefit from admission. I did speak with the on-call hospitalist service Dr. Leon and the patient was admitted to the medicine service.Blood work shows a white count of 10.5 hemoglobin of 9.6. Platelet count is unremarkable. Patient's kidney function shows prerenal azotemia electrolytes grossly unremarkable. Discussion w/ other healthcare providers: Dr. Christianson urology Dr. Leon inpatient medicine service Prior /Outside records reviewed: I reviewed part of urology visit from Dr. Tripp from July 17. Patient with a known history of BPH and hematuria. Patient reportedly with likely obstructive issue secondary to prostrate and urethral stricture. I did review the patient was seen in the department earlier today for catheter obstruction. Differential diagnosis: Catheter outlet obstruction, coagulopathy, LAZARUS, dehydration, urethral stricture, BPH among others were considered Diagnostics, as interpreted by me: ECG: None Cardiac monitoring: An order was placed for continuous cardiac monitoring. The monitor shows a rate of 67 with sinus rhythm. Patient was placed on pulse oximetry Medical decision rules: None Imaging studies: None HPI: Patient presents due to concern for hematuria and issues with associated catheter. The patient states that he did have it placed 2 days ago was removed then had to come back for acute retention. Patient states that he does take baby aspirin. This is his fourth visit in the last 2 days. The patient did call the on-call urologist and they recommended that he come in here for evaluation. He reports that when he was having some difficulty as there did not seem to be urine in the bag he had been instructed on how to have it flushed and his daughter is a nurse so she attempted to do this and seem not to be able to remove the water that was instilled. Patient states that he was having some overflow incontinence through the penis and not into the catheter bag. He is on antibiotics. He denies any fevers or chills no flank or back pain. PAST MEDICAL HISTORY: See Below PAST SURGICAL HISTORY: See Below SOCIAL HISTORY: See Below HOME MEDICATIONS: See Below ALLERGIES: See Below VITALS: See Below PHYSICAL EXAMINATION: GENERAL: NAD, non-toxic. Orosco catheter bag noted to be grossly bloody. EYE EXAM: Normal conjunctiva. PERRL, no anisocoria and EOM's grossly intact w/o pain. OROPHARYNX: Moist mucus membranes, grossly normal dentition. NECK: Trachea midline, no stridor. LUNGS: Clear to auscultation. Normal chest wall mechanics. HEART: NSR, no MRG. ABDOMEN: Abdomen soft, non-tender, no masses, no rebound or guarding. BACK: No CVA TTP. SKIN: No rashes and no bruising. UPPER EXTREMITIES: Upper extremities are grossly normal. LOWER EXTREMITIES: Grossly normal, no edema. NEURO EXAM: Awake and alert, follows commands, no obvious facial asymmetry, normal speech, moves all 4 extremities. Past Med/Surg History Problem List (Updated 08/31/24 @ 18:30 by Richie Mccullough MD) Hematuria (Acute) Malfunction of Orosco catheter (Acute) Acute urinary retention (Acute) Acute UTI (Acute) Hematuria (Acute) Acute urinary retention (Acute) Hematuria, gross (Acute) BPH w urinary obs/LUTS Status post hip replacement Waldenstrom macroglobulinemia (Acute) Osteoarthritis of left hip Encounter for pre-operative examination Medical History Hx of hematuria "off and on" > reason for upcoming procedure 07/11/24 History of anesthesia reaction "after first hip sx at [facility], blood pressure dropped low" History of COVID-19 01/16, not hospitalized, loss taste and smell, fever, fatigue, loss of appetite Pulmonary nodule RLL (chronic dating back to 2013 per records) Waldenstrom's disease follows with [facility] ([place])- no medication at present time Hypertension Surgical History History of esophagogastroduodenoscopy (EGD) Hx of cataract extraction Lt./rt Hx of total hip arthroplasty rt./lt. H/O basal cell carcinoma excision History of tonsillectomy History of colonoscopy History of herniorrhaphy X3 - right and left inguinal Social History Smoking Status: Former smoker Cigarettes Per Day: QUIT 20 YEARS AGO; Second Hand Exposure: Yes; Do You Dip or Chew Tobacco: No; Tobacco Cessation Education Requested by Patient: No Hx Alcohol Use: No Hx Substance Use: No Preferred Language: Jordanian Communication Ability: Effective Visual Impairment: No Limitations Hse Coordinator Required: No Beliefs That Will Affect Care: None Current Living Situation: Spouse Other Information That Helps Us Care for You: No Feels Safe at Home: Yes Safety Concerns: Feels Safe At This Time Assistive Devices: None Allergies Allergies Allergy/AdvReac Type Severity Reaction Status Date / Time Vyogenu-VUS-EaV Reductase Allergy Intermediate MUSCLE Verified 08/30/24 20:53 Inhibitor ACHES [Qtgfhnh-Kwn-Rpe Reductase Inhibitor] Home Meds Home Medications Medication Instructions Recorded Confirmed aspirin 81 mg tablet,delayed 81 mg PO QPM 08/13/21 08/30/24 release hydrochlorothiazide 12.5 mg tablet 12.5 mg PO QAM 08/13/21 08/30/24 losartan 25 mg tablet 25 mg PO QAM 08/13/21 08/30/24 multivitamin with iron 1 tab PO QAM 06/27/24 08/30/24 Previous Rx's Medication Instructions Recorded tamsulosin 0.4 mg capsule 0.4 mg PO HS #30 caps 07/11/24 finasteride 5 mg tablet 5 mg PO DAILY #90 tabs 07/23/24 cefdinir 300 mg capsule 300 mg PO BID 10 days #20 caps 08/29/24 Results & Data (ED) Vital Signs Vital Signs - 24 hr 08/30/24 20:21 08/30/24 22:21 Temperature 36.7 C Temperature Source Temporal Artery Scan Pulse Rate 80 Pulse Rate [Apical] 63 Pulse Rhythm Regular Pulse Strength Normal Respiratory Rate 18 18 Respiratory Effort / Characteristics Non-Labored Spontaneous Non-Labored Spontaneous Respiratory Depth Normal Normal Respiratory Pattern Regular Regular Blood Pressure 160/79 H Blood Pressure [Left Arm] 117/58 L Blood Pressure Mean 106 Blood Pressure Mean [Left Arm] 77 Blood Pressure Position Sitting Pulse Oximetry 98 96 Oxygen Delivery Method Room Air Sepsis Recent Fever Within 48 Hours No Sepsis New/Unexplained Change in Mental Status N/A Sepsis Action Taken by Nursing No Action Required Home Medications Current Medication List: was personally reviewed by me Laboratory Data Attestation: I reviewed the patient's lab results. 08/31/24 10:43 08/31/24 05:52 Lab Results 08/30/24 08/30/24 Range/Units 21:33 22:18 WBC Cancelled 10.52 RBC Cancelled 3.04 L Hgb Cancelled 9.6 L D Hct Cancelled 28.7 L MCV Cancelled 94.4 MCH Cancelled 31.6 MCHC Cancelled 33.4 RDW Std Deviation Cancelled 45.1 RDW Coeff of Lexie Cancelled 12.9 Plt Count Cancelled 216 MPV Cancelled 9.6 Immature Gran % (Auto) Cancelled 0.2 Neut % (Auto) Cancelled 55.0 Lymph % (Auto) Cancelled 28.4 Sharp % (Auto) Cancelled 14.4 Eos % (Auto) Cancelled 1.3 Baso % (Auto) Cancelled 0.7 Neut # (Auto) Cancelled 5.78 Lymph # (Auto) Cancelled 2.99 Sharp # (Auto) Cancelled 1.52 H Eos # (Auto) Cancelled 0.14 Baso # (Auto) Cancelled 0.07 Immature Gran # (Auto) Cancelled 0.02 Absolute Nucleated RBC Cancelled Nucleated RBC % (auto) Cancelled Neutrophils % (Manual) Cancelled Band Neutrophils % Cancelled Lymphocytes % (Manual) Cancelled Prolymphocyte % Cancelled Reactive Lymphs % (Man) Cancelled Monocytes % (Manual) Cancelled Eosinophils % (Manual) Cancelled Basophils % (Manual) Cancelled Metamyelocytes % (Man) Cancelled Myelocytes % (Man) Cancelled Promyelocytes % (Man) Cancelled Blast Cells % (Manual) Cancelled Plasma Cell % (Manual) Cancelled Other Cells % Cancelled Nucleated RBC % Cancelled Neutrophils # (Manual) Cancelled Band Neutrophils # Cancelled Total Absolute Neuts Cancelled Lymphocytes # (Manual) Cancelled Prolymphocyte # Cancelled Reactive Lymphs # Cancelled Total Abs Lymphocytes Cancelled Monocytes # (Manual) Cancelled Eosinophils # (Manual) Cancelled Basophils # (Manual) Cancelled Metamyelocytes # (Man) Cancelled Myelocytes # (Manual) Cancelled Promyelocytes # (Man) Cancelled Blast Cells # (Man) Cancelled Plasma Cell # (Manual) Cancelled Other Cells # Cancelled Nucleated RBCs # (Man) Cancelled Hypersegmented Neuts Cancelled Hyposegmented Neuts Cancelled Hypogranular Neuts Cancelled Large Granular Lymphs Cancelled # Lrg Granular Lymphs Cancelled Hairy Cells Cancelled Smudge Cells Cancelled Toxic Granulation Cancelled Toxic Vacuolation Cancelled Dohle Bodies Cancelled Francis Rods Cancelled Platelet Estimate Cancelled Hypogranular Platelets Cancelled Giant Platelets Cancelled Platelet Satelliting Cancelled RBC Morphology Cancelled Polychromasia Cancelled Hypochromasia Cancelled Poikilocytosis Cancelled Basophilic Stippling Cancelled Anisocytosis Cancelled Microcytosis Cancelled Macrocytosis Cancelled Spherocytes Cancelled Pappenheimer Bodies Cancelled Sickle Cells Cancelled Target Cells Cancelled Tear Drop Cells Cancelled Ovalocytes Cancelled Stomatocytes Cancelled Barry-Bonita Bodies Cancelled Echinocytes Cancelled Acanthocytes (Spur) Cancelled Rouleaux Cancelled RBC Agglutinates Cancelled Schistocytes Cancelled Sezary Cell Cancelled Sodium 139 (136-145) mmol/L Potassium 3.6 (3.5-5.1) mmol/L Chloride 105 (98-107) mmol/L Carbon Dioxide 27 (21-32) mmol/L Anion Gap 7 (3-11) BUN 25 H (6-23) mg/dl Creatinine 0.84 (0.6-1.4) mg/dl Est Cr Clr Drug Dosing 91.1 ml/min eGFR 96.78 BUN/Creatinine Ratio 29.8 H (10-20) Glucose 82 (70-99(Fasting)) mg/dl Calcium 8.7 (8.6-10.3) mg/dl Blood Parasites ID Cancelled Administered Medications Finasteride (Finasteride 5 Mg Tab) 5 mg PO DAILY [facility] Stop: 09/30/24 08:59 Last Admin: 08/31/24 09:01 Dose: 5 mg Documented By: WINSTON Hydrochlorothiazide (Hydrochlorothiazide 25 Mg Tab) [facility] Stop: 09/30/24 08:59 Last Admin: 08/31/24 09:00 Dose: 12.5 mg Documented By: WINSTON Losartan Potassium (Losartan Potassium 25 Mg Tab) 25 mg PO QAM [facility] Stop: 09/30/24 08:59 Last Admin: 08/31/24 09:01 Dose: 25 mg Documented By: WINSTON Multivitamins/Folic Acid/Vitamin C (Multivitamin Chewable Tab) 1 tab PO QAM [facility] Stop: 09/30/24 08:59 Last Admin: 08/31/24 09:00 Dose: Not Given Documented By: WINSTON Discontinued Medications Sodium Chloride (Nss) 1,000 mls @ 999 mls/hr IV .Q1H1M [facility] Stop: 08/30/24 22:00 Last Infusion: 08/31/24 00:49 Dose: Infused Documented By: Admin: 08/30/24 21:27 Dose: 999 mls/hr Documented By: BRIGIDA Sodium Chloride (Nss) 1,000 mls @ 125 mls/hr IV .Q8H [facility] Stop: 08/31/24 16:00 Last Admin: 08/31/24 16:59 Dose: 125 mls/hr Documented By: Infusion: 08/31/24 16:43 Dose: Infused Documented By: Admin: 08/31/24 08:43 Dose: 125 mls/hr Documented By: Infusion: 08/31/24 08:42 Dose: Infused Documented By: Admin: 08/31/24 00:17 Dose: 125 mls/hr Documented By: EMILIA Ceftriaxone Sodium (Rocephin) 2,000 mg in 50 mls @ 100 mls/hr IV Q24H [facility] Stop: 09/10/24 00:00 Last Infusion: 08/31/24 00:51 Dose: Infused Documented By: Admin: 08/31/24 00:17 Dose: 100 mls/hr Documented By: EMILIA Lidocaine HCl (Lidocaine 2% Jelly 5 Ml Tube) 5 ml EXT NOW ONE Stop: 08/30/24 21:30 Last Admin: 08/30/24 21:32 Dose: 5 ml Documented By: MED Discharge Plan Visit Data Chief Complaint: Catheter Replacement Stated Complaint: CLOGGED CATHETER ED Provider: Richie Mccullough Discharge Problem: Hematuria, gross, Acute urinary retention Patient Disposition: Admitted As Inpatient Condition: Good Discharge Instructions Interventions: ED Discharge Assessment Last Done: 08/30/24 23:07
[2024-08-30] MEDS: SODIUM CHLORIDE 0.9% 1,000 ML IV SCH (21:27)
[2024-08-30] MEDS: LIDOCAINE 2% JELLY 5 ML TUBE EXT ONE (21:32)
[2024-08-30 22:11] LABS: Anion Gap 7.0 (3-11); Blood Urea Nitrogen 25.0 mg/dl (6-23); Calcium 8.7 mg/dl (8.6-10.3); Carbon Dioxide 27.0 mmol/L (21-32); Chloride 105.0 mmol/L (98-107); Creatinine Clr Calc Pharmacy 91.1 ml/min; Glucose 82.0 mg/dl (70-99(Fasting)); Potassium 3.6 mmol/L (3.5-5.1); Sodium 139.0 mmol/L (136-145)
[2024-08-30 23:09] LABS: Hematocrit (blood only) 28.7 % (42.0-52.0); Hemoglobin 9.6 g/dl (14.0-18.0); Immature Granulocytes # (auto) 0.02 K/uL (0.01-0.20); Immature Granulocytes % (auto) 0.2 %; Mean Corpuscular Hemoglobin 31.6 pg (25.0-34.0); Mean Corpuscular Volume 94.4 fL (80.0-100.0); Platelet Count 216 K/uL (130-400); RDW Standard Deviation 45.1 fL (36.4-46.3); Red Blood Count 3.04 M/uL (4.70-6.10); White Blood Count 10.52 K/ul (4.8-10.8)
[2024-08-30] MEDS ORDERED: ACETAMINOPHEN 325 MG TAB PO PRN (23:40)
[2024-08-31] MEDS: cefTRIAXone SODIUM 2,000 MG/50 ML BAG IV SCH (00:17)
[2024-08-31] MEDS: SODIUM CHLORIDE 0.9% 1,000 ML IV SCH (00:17)
--- NOTE | 2024-08-31 04:18 | History & Physical Report ---
Date of Service August 30, 2024 Assessment & Plan (1) Hematuria: Plan: 64-year-old male with past medical history significant for prediabetes, hypertension, GERD, Waldenstrm's macroglobulinemia, history of kidney stones comes because of hematuria. In June 2024 patient because of hematuria had transurethral resection and urethral dilatation. 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 Urology discussed options and currently placed him on Proscar and Flomax. After that patient was doing okay until few days back. On 08/28/2024 patient was in the ER for hematuria. 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 In the ER three way Orosco catheter was placed and dose of Rocephin was given because of UTI on UA. But the patient refused to keep Orosco catheter and it was taken out and discharged from ER to follow-up with urology . He was back to the ER on 08/29/2024 again with hematuria and unable to micturate. Orosoc catheter was placed with immediate resolution of his symptoms. Gross hematuria was noted. Orosco was irrigated without difficulty. As he did okay he was discharged with Orosco catheter to follow-up with his urology. Patient again came to the ER on 08/30/2024 because he was micturating out of the catheter and was concerned about clotting or malfunction of the catheter. Catheter was removed and new Orosco was placed and bladder irrigation was performed and several clots were removed. He did okay and got discharged to continue his antibiotics and to hold his aspirin for 5 days. Patient came back on the same day today 08/30/2024 evening again with hematuria. ER discussed with the urology and was advised for bigger three-way catheter and if any obstruction develops to start on CBI. Patient currently status post 22fr three-way catheter and hematuria can be seen. Denies any abdominal pain. Denies any fevers. Denies any nausea. No chest pain or shortness of breath. No cough. Resting comfortably and hemodynamically stable. Hematuria Multiple ER visits recently as mentioned in H&P Status post bigger three-way Orosco catheter If obstruction develops plan to start on CBI as per urology recommendation Close monitor in the hospital On Rocephin IV fluids hb 9.6 Will follow H&H blood consent obtained Urology consult History of Waldenstrm's macroglobulinemia Holding aspirin for now Prediabetes Will follow HbA1c levels Hypertension On losartan and hydrochlorothiazide Will monitor DVT prophylaxis SCDs Disposition Medical floor Full code. History of Present Illness Chief Complaint: Hematuria Primary Care Provider: James William MD 64-year-old male with past medical history significant for prediabetes, hypertension, GERD, Waldenstrm's macroglobulinemia, history of kidney stones comes because of hematuria. In June 2024 patient because of hematuria had transurethral resection and urethral dilatation. 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 Urology discussed options and currently placed him on Proscar and Flomax. After that patient was doing okay until few days back. On 08/28/2024 patient was in the ER for hematuria. 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 In the ER three way Orosco catheter was placed and dose of Rocephin was given because of UTI on UA. But the patient refused to keep Orosco catheter and it was taken out and discharged from ER to follow-up with urology . He was back to the ER on 08/29/2024 again with hematuria and unable to micturate. Orosco catheter was placed with immediate resolution of his symptoms. Gross hematuria was noted. Orosco was irrigated without difficulty. As he did okay he was discharged with Orosco catheter to follow-up with his urology. Patient again came to the ER on 08/30/2024 because he was micturating out of the catheter and was concerned about clotting or malfunction of the catheter. Catheter was removed and new Orosco was placed and bladder irrigation was performed and several clots were removed. He did okay and got discharged to continue his antibiotics and to hold his aspirin for 5 days. Patient came back on the same day today 08/30/2024 evening again with hematuria. ER discussed with the urology and was advised for bigger three-way catheter and if any obstruction develops to start on CBI. Patient currently status post 22fr three-way catheter and hematuria can be seen. Denies any abdominal pain. Denies any fevers. Denies any nausea. No chest pain or shortness of breath. No cough. Resting comfortably and hemodynamically stable. Past medical history. As mentioned above Past surgical history. Colonoscopy. Laparoscopic repair of inguinal hernia. Tonsillectomy. TURP Social history. . Quit smoking 1996. Alcohol rarely. No drug use. Family history. Father had CHF. Hypertension. Thyroid disorder. Mother dementia. Diabetes. Stroke. Daughter has thyroid disorder. Allergies Allergy/AdvReac Type Severity Reaction Status Date / Time Ibpkeit-PMU-BsR Reductase Allergy Intermediate MUSCLE Verified 08/30/24 20:53 Inhibitor ACHES [Tzmwgbq-Fzx-Emn Reductase Inhibitor] Home Medications Medication Instructions Recorded Confirmed Type aspirin 81 mg tablet,delayed 81 mg PO QPM 08/13/21 08/30/24 History release hydrochlorothiazide 12.5 mg tablet 12.5 mg PO QAM 08/13/21 08/30/24 History losartan 25 mg tablet 25 mg PO QAM 08/13/21 08/30/24 History multivitamin with iron 1 tab PO QAM 06/27/24 08/30/24 History tamsulosin 0.4 mg capsule 0.4 mg PO HS #30 caps 07/11/24 08/30/24 Rx finasteride 5 mg tablet 5 mg PO DAILY #90 tabs 07/23/24 08/30/24 Rx cefdinir 300 mg capsule 300 mg PO BID 10 days #20 caps 08/29/24 08/30/24 Rx Past Med/Surg History Problem List Hematuria (Acute) Malfunction of Orosco catheter (Acute) Acute urinary retention (Acute) Acute UTI (Acute) Hematuria (Acute) Acute urinary retention (Acute) Hematuria, gross (Acute) BPH w urinary obs/LUTS Status post hip replacement Waldenstrom macroglobulinemia (Acute) Osteoarthritis of left hip Encounter for pre-operative examination Medical History Hx of hematuria "off and on" > reason for upcoming procedure 07/11/24 History of anesthesia reaction "after first hip sx at [facility], blood pressure dropped low" History of COVID-19 01/16, not hospitalized, loss taste and smell, fever, fatigue, loss of appetite Pulmonary nodule RLL (chronic dating back to 2013 per records) Waldenstrom's disease follows with [facility] ([place])- no medication at present time Hypertension Surgical History History of esophagogastroduodenoscopy (EGD) Hx of cataract extraction Lt./rt Hx of total hip arthroplasty rt./lt. 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 ENT- oropharynx clear Neck- supple, no JVD. Lungs- clear to auscultation no wheezing or crackles Heart- regular rate and rhythm; no murmur, no gallop. Abdomen- normal bowel sounds, soft, nontender, no distension Extremities- no pretibial edema, no erythema seen Neuro- alert, oriented PERRL, no facial palsy; no dysarthria; moves extremities Results & Data Results & Data Vital Signs (Past 12 Hours) Vital Signs Temp Pulse Pulse Resp BP BP Pulse Ox 08/30/24 22:21 63 18 117/58 L 96 08/30/24 20:21 36.7 C 80 18 160/79 H 98 O2 Del Method 08/30/24 22:21 08/30/24 20:21 Room Air Diagnostic Findings Laboratory Results WBC 10.52 K/ul (4.8-10.8) 08/30/24 22:18 RBC 3.04 M/uL (4.70-6.10) L 08/30/24 22:18 Hgb 9.6 g/dl (14.0-18.0) L D 08/30/24 22:18 Hct 28.7 % (42.0-52.0) L 08/30/24 22:18 MCV 94.4 fL (80.0-100.0) 08/30/24 22:18 MCH 31.6 pg (25.0-34.0) 08/30/24 22:18 MCHC 33.4 g/dL (32.0-36.0) 08/30/24 22:18 RDW Std Deviation 45.1 fL (36.4-46.3) 08/30/24 22:18 RDW Coeff of Lexie 12.9 % (11.5-14.5) 08/30/24 22:18 Plt Count 216 K/uL (130-400) 08/30/24 22:18 MPV 9.6 fL (9.4-12.4) 08/30/24 22:18 Immature Gran % (Auto) 0.2 % 08/30/24 22:18 Neut % (Auto) 55.0 % 08/30/24 22:18 Lymph % (Auto) 28.4 % 08/30/24 22:18 [place] % (Auto) 14.4 % 08/30/24 22:18 Eos % (Auto) 1.3 % 08/30/24 22:18 Baso % (Auto) 0.7 % 08/30/24 22:18 Neut # (Auto) 5.78 K/uL (1.40-6.50) 08/30/24 22:18 Lymph # (Auto) 2.99 K/uL (1.20-3.40) 08/30/24 22:18 [place] # (Auto) 1.52 K/uL (0.11-0.59) H 08/30/24 22:18 Eos # (Auto) 0.14 K/uL (0.00-0.50) 08/30/24 22:18 Baso # (Auto) 0.07 K/uL (0.00-0.20) 08/30/24 22:18 Immature Gran # (Auto) 0.02 K/uL (0.01-0.20) 08/30/24 22:18 Absolute Nucleated RBC Cancelled 08/30/24 21:33 Nucleated RBC % (auto) Cancelled 08/30/24 21:33 Neutrophils % (Manual) Cancelled 08/30/24 21:33 Band Neutrophils % Cancelled 08/30/24 21:33 Lymphocytes % (Manual) Cancelled 08/30/24 21:33 Prolymphocyte % Cancelled 08/30/24 21:33 Reactive Lymphs % (Man) Cancelled 08/30/24 21:33 Monocytes % (Manual) Cancelled 08/30/24 21:33 Eosinophils % (Manual) Cancelled 08/30/24 21:33 Basophils % (Manual) Cancelled 08/30/24 21:33 Metamyelocytes % (Man) Cancelled 08/30/24 21:33 Myelocytes % (Man) Cancelled 08/30/24 21:33 Promyelocytes % (Man) Cancelled 08/30/24 21:33 Blast Cells % (Manual) Cancelled 08/30/24 21:33 Plasma Cell % (Manual) Cancelled 08/30/24 21:33 Other Cells % Cancelled 08/30/24 21:33 Nucleated RBC % Cancelled 08/30/24 21:33 Neutrophils # (Manual) Cancelled 08/30/24 21:33 Band Neutrophils # Cancelled 08/30/24 21:33 Total Absolute Neuts Cancelled 08/30/24 21:33 Lymphocytes # (Manual) Cancelled 08/30/24 21:33 Prolymphocyte # Cancelled 08/30/24 21:33 Reactive Lymphs # Cancelled 08/30/24 21:33 Total Abs Lymphocytes Cancelled 08/30/24 21:33 Monocytes # (Manual) Cancelled 08/30/24 21:33 Eosinophils # (Manual) Cancelled 08/30/24 21:33 Basophils # (Manual) Cancelled 08/30/24 21:33 Metamyelocytes # (Man) Cancelled 08/30/24 21:33 Myelocytes # (Manual) Cancelled 08/30/24 21:33 Promyelocytes # (Man) Cancelled 08/30/24 21:33 Blast Cells # (Man) Cancelled 08/30/24 21:33 Plasma Cell # (Manual) Cancelled 08/30/24 21:33 Other Cells # Cancelled 08/30/24 21:33 Nucleated RBCs # (Man) Cancelled 08/30/24 21:33 Hypersegmented Neuts Cancelled 08/30/24 21:33 Hyposegmented Neuts Cancelled 08/30/24 21:33 Hypogranular Neuts Cancelled 08/30/24 21:33 Large Granular Lymphs Cancelled 08/30/24 21:33 # Lrg Granular Lymphs Cancelled 08/30/24 21:33 Hairy Cells Cancelled 08/30/24 21:33 Smudge Cells Cancelled 08/30/24 21:33 Toxic Granulation Cancelled 08/30/24 21:33 Toxic Vacuolation Cancelled 08/30/24 21:33 Dohle Bodies Cancelled 08/30/24 21:33 Francis Rods Cancelled 08/30/24 21:33 Platelet Estimate Cancelled 08/30/24 21:33 Hypogranular Platelets Cancelled 08/30/24 21:33 Giant Platelets Cancelled 08/30/24 21:33 Platelet Satelliting Cancelled 08/30/24 21:33 RBC Morphology Cancelled 08/30/24 21:33 Polychromasia Cancelled 08/30/24 21:33 Hypochromasia Cancelled 08/30/24 21:33 Poikilocytosis Cancelled 08/30/24 21:33 Basophilic Stippling Cancelled 08/30/24 21:33 Anisocytosis Cancelled 08/30/24 21:33 Microcytosis Cancelled 08/30/24 21:33 Macrocytosis Cancelled 08/30/24 21:33 Spherocytes Cancelled 08/30/24 21:33 Pappenheimer Bodies Cancelled 08/30/24 21:33 Sickle Cells Cancelled 08/30/24 21:33 Target Cells Cancelled 08/30/24 21:33 Tear Drop Cells Cancelled 08/30/24 21:33 Ovalocytes Cancelled 08/30/24 21:33 Stomatocytes Cancelled 08/30/24 21:33 Barry-Osborn Bodies Cancelled 08/30/24 21:33 Echinocytes Cancelled 08/30/24 21:33 Acanthocytes (Spur) Cancelled 08/30/24 21:33 Rouleaux Cancelled 08/30/24 21:33 RBC Agglutinates Cancelled 08/30/24 21:33 Schistocytes Cancelled 08/30/24 21:33 Sezary Cell Cancelled 08/30/24 21:33 Sodium 139 mmol/L (136-145) 08/30/24 21:33 Potassium 3.6 mmol/L (3.5-5.1) 08/30/24 21:33 Chloride 105 mmol/L (98-107) 08/30/24 21:33 Carbon Dioxide 27 mmol/L (21-32) 08/30/24 21:33 Anion Gap 7 (3-11) 08/30/24 21:33 BUN 25 mg/dl (6-23) H 08/30/24 21:33 Creatinine 0.84 mg/dl (0.6-1.4) 08/30/24 21:33 Est Cr Clr Drug Dosing 91.1 ml/min 08/30/24 21:33 eGFR 96.78 08/30/24 21:33 BUN/Creatinine Ratio 29.8 (10-20) H 08/30/24 21:33 Glucose 82 mg/dl (70-99(Fasting)) 08/30/24 21:33 Calcium 8.7 mg/dl (8.6-10.3) 08/30/24 21:33 Blood Parasites ID Cancelled 08/30/24 21:33 Code Status & VTE Plan VTE Prophylaxis Plan VTE Prophylaxis will be ordered: Yes (1) Hematuria Hematuria type: gross Qualified Code(s): R31.0 - Gross hematuria
[2024-08-31 06:06] LABS: Hematocrit (blood only) 25.7 % (42.0-52.0); Hemoglobin 8.4 g/dl (14.0-18.0); Immature Granulocytes # (auto) 0.03 K/uL (0.01-0.20); Immature Granulocytes % (auto) 0.3 %; Mean Corpuscular Hemoglobin 31.0 pg (25.0-34.0); Mean Corpuscular Volume 94.8 fL (80.0-100.0); Platelet Count 175 K/uL (130-400); RDW Standard Deviation 45.2 fL (36.4-46.3); Red Blood Count 2.71 M/uL (4.70-6.10); White Blood Count 9.71 K/ul (4.8-10.8)
[2024-08-31 06:25] LABS: Anion Gap 2.0 (3-11); Blood Urea Nitrogen 18.0 mg/dl (6-23); Calcium 7.6 mg/dl (8.6-10.3); Carbon Dioxide 30.0 mmol/L (21-32); Chloride 109.0 mmol/L (98-107); Creatinine Clr Calc Pharmacy 100.6 ml/min; Glucose 97.0 mg/dl (70-99(Fasting)); Magnesium 1.9 mg/dl (1.7-2.4); Potassium 3.7 mmol/L (3.5-5.1); Sodium 141.0 mmol/L (136-145)
[2024-08-31] MEDS: MULTIVITAMIN CHEWABLE TAB PO SCH (09:00)
[2024-08-31] MEDS: hydroCHLOROthiazide 25 MG TAB PO SCH (09:00)
[2024-08-31] MEDS: LOSARTAN POTASSIUM 25 MG TAB PO SCH (09:01)
[2024-08-31] MEDS: FINASTERIDE 5 MG TAB PO SCH (09:01)
--- NOTE | 2024-08-31 09:16 | Urology Consultation ---
Date of Consultation August 31, 2024 Assessment & Plan (1) Hematuria: (2) Acute urinary retention: Plan 64-year-old male with a history of recurrent hematuria with a negative TURBT pathology who was admitted to the hospital due to recurrent bounce backs to the ED with retention and clot obstruction He has not required any irrigation overnight with the placement of a larger catheter. Urine is thin and maroon and I suspect this is old blood. No clots in tubing or bag. Will observe this at this time and if worsens can start on CBI Recommend observation for at least another 24 hours given his multiple bounce backs to the ED over the past few days Discussed plan with him and his . Do not think he needs any urologic intervention unless he were to continuously clot off his catheter Remainder of care per medicine team. Urology to follow History of Present Illness Attending Physician: Blade Shah MD History of Present Illness 64-year-old male who was admitted due to recurrent hematuria with clot passage. Patient is known to the urologic service as he had a history of hematuria and underwent a TURBT and urethral dilation with Dr. Singh on 07/11/2024. Pathology returned negative for cancer. Patient recently developed hematuria and retention and has been seen in the emergency department 4 times since 08/28/2024. Due to recurrent issues with hematuria in his catheter, he was admitted last night. Bladder scan at time of presentation only showed 50 cc. Labs today show a hemoglobin of 8.4, white blood cell count of 9.7, and creatinine of 0.76. Urinalysis on arrival showed trace leukocyte esterase, greater than 20 RBCs, greater than 50 WBCs and 1+ bacteria. Cultures prelim not growing anything patient was given ceftriaxone. Allergies Allergy/AdvReac Type Severity Reaction Status Date / Time Aqylzyv-TGB-EiQ Reductase Allergy Intermediate MUSCLE Verified 08/30/24 20:53 Inhibitor ACHES [Mqsitut-Gun-Tio Reductase Inhibitor] Home Medications Medication Instructions Recorded Confirmed Type aspirin 81 mg tablet,delayed 81 mg PO QPM 08/13/21 08/30/24 History release hydrochlorothiazide 12.5 mg tablet 12.5 mg PO QAM 08/13/21 08/30/24 History losartan 25 mg tablet 25 mg PO QAM 08/13/21 08/30/24 History multivitamin with iron 1 tab PO QAM 06/27/24 08/30/24 History tamsulosin 0.4 mg capsule 0.4 mg PO HS #30 caps 07/11/24 08/30/24 Rx finasteride 5 mg tablet 5 mg PO DAILY #90 tabs 07/23/24 08/30/24 Rx cefdinir 300 mg capsule 300 mg PO BID 10 days #20 caps 08/29/24 08/30/24 Rx Patient History Medical History Hx of hematuria "off and on" > reason for upcoming procedure 07/11/24 History of anesthesia reaction "after first hip sx at [facility], blood pressure dropped low" History of COVID-19 01/16, not hospitalized, loss taste and smell, fever, fatigue, loss of appetite Pulmonary nodule RLL (chronic dating back to 2013 per records) Waldenstrom's disease follows with [facility] ([place])- no medication at present time Hypertension Surgical History History of esophagogastroduodenoscopy (EGD) Hx of cataract extraction Lt./rt Hx of total hip arthroplasty rt./lt. H/O basal cell carcinoma excision History of tonsillectomy History of colonoscopy History of herniorrhaphy X3 - right and left inguinal Social History Smoking Status: Former smoker Cigarettes Per Day: QUIT 20 YEARS AGO; Second Hand Exposure: Yes; Do You Dip or Chew Tobacco: No; Tobacco Cessation Education Requested by Patient: No Hx Alcohol Use: No Hx Substance Use: No Preferred Language: Italian Communication Ability: Effective Visual Impairment: No Limitations Radiology Tech Required: No Beliefs That Will Affect Care: None Current Living Situation: Spouse Other Information That Helps Us Care for You: No Feels Safe at Home: Yes Safety Concerns: Feels Safe At This Time Assistive Devices: None Physical Exam Physical Exam: General: Alert and oriented, no acute distress HEENT: Normocephalic, mucous membranes moist Pulmonary: Nonlabored respirations Abdomen: Nondistended : 22 German three-way catheter, capped draining thin maroon urine. Extremities: Moves all 4 spontaneously Neuro: No gross deficits Skin: Warm, dry, no rashes noted Results & Data Vital Signs (Past 12 Hours) Vital Signs Temp Pulse Pulse Pulse Resp BP BP 08/31/24 07:55 36.8 C 63 18 121/66 08/30/24 23:40 36.8 C 67 18 146/61 H 08/30/24 23:40 36.8 C 67 18 146/61 H 08/30/24 23:07 60 20 117/58 L 08/30/24 22:31 69 08/30/24 22:21 63 18 117/58 L Pulse Ox O2 Del Method 08/31/24 07:55 97 Room Air 08/30/24 23:40 99 Room Air 08/30/24 23:40 99 Room Air 08/30/24 23:07 98 Room Air 08/30/24 22:31 08/30/24 22:21 96 PG Care Time/CCT Total # of Minutes Spent Total Time Spent with Patient: Total time spent is greater than 50% in coordination of care (as documented) at patient's floor/unit and/or counseling patient: Coding Level of Care Code 81980 INT INP/OBS CARE 2/55MIN Diagnoses Hematuria R31.0 Hematuria type: gross Acute urinary retention R33.8 (1) Hematuria Hematuria type: gross Qualified Code(s): R31.0 - Gross hematuria
[2024-08-31 10:59] LABS: Hematocrit (blood only) 26.9 % (42.0-52.0); Hemoglobin 8.8 g/dl (14.0-18.0)
--- NOTE | 2024-08-31 13:04 | Hospitalist Progress Note ---
Date of Service August 31, 2024 Assessment & Plan (1) Hematuria: Plan: 64-year-old male with past medical history significant for prediabetes, hypertension, GERD, Waldenstrm's macroglobulinemia, presented to ER multiple times over past 48 hours for hematuria and urinary retention. S/P bigger three-way Orosco catheter Continues with Urology consulted. Had recommended if obstruction develops plan to start on CBI. Urology plans to hand irrigate later today. Do not think he needs any urologic intervention unless he were to continuously clot off his catheter Initially treated with Rocephin. urine culture negative. Will discontinue Repeat Hgb: 8.8. Was 8.4 early this morning. Hgb: 13 on 08/28/24. Urology suggests this may be old blood and not active bleeding currently. Will continue to closely monitor. If Hgb<8.0 or signs increased bleeding plan PRBC transfusion. Consent already obtained if would require. Spoke to hematology Dr Lynch, suggests that since patient not on medications and no history of treatment for Waldenstrom's he would be able to receive PRBC transfusion and would not need to be irradiated PRBCs. Continue tamsulosin, finasteride #History of Waldenstrm's macroglobulinemia Holding aspirin for now #Prediabetes Fasting glucose 97 HbA1c in am #Hypertension Stable Continue losartan Hold hydrochlorothiazide and reassess tomorrow Will monitor DVT prophylaxis SCDs Pt was seen and care coordinated with Dr Shah. I spent a total of 45 minutes reviewing notes, outpatient records, labs, medication, coordinating, documenting and providing care for this patient excluding time spent in the performance of separately billed services and excluding time spent by another provider/QHP. Admission and Anticipated Discharge Date Admission Date: August 30, 2024 Supervising Physician Co-Signing Physician Notes Pt seen and examined by me, care coordinated w/ CHIKI Marsh, pls refer to her note above for further detail. Pt currently lying in bed in NAD, Orosco placed and with maroon colored urine. Dr. Christianson (urology) also present at the bedside and discussed with. Pt denies any fever, chills, chest pain, abd. pain, overall he feels well. Discussed possible need for blood transfusion, consent was already obtained - contacted pt's mechanic helper Dr. Lynch to clarify if any modifications were necessary if pt did require blood transfusion - no modifications necessary at this time, see above. Plan to cont. to closely monitor, re-check cbc tmrw. MD Alyssa I spent a total of 15 minutes coordinating, documenting, and providing care for this patient excluding time spend in the performance of separately billed services or time spent by another provider / QHP. Subjective Patient seen and examined sitting up in bed. Patient with recurrent hematuria following with urology. Unfortunately had multiple ER visits over past 48 hours with ongoing hematuria and retention. He had larger Orosco placed and patient reports feels improved since larger Orosco cath was placed. He reports continued maroon color urine output but feels like bladder is emptying and not having any suprapubic or abdominal pain. Denies fever/chills, N/V/D/C, BAUTISTA, dizziness, CP, SOB, cough, rhinorrhea, abdominal pain, weakness, extremity edema, rashes. Review of Systems Review of Systems: All systems reviewed & are unremarkable except as noted in HPI & below Physical Exam Physical Exam: General: no distress, WDWN Head: normocephalic, atraumatic Eyes: conjunctiva non-injected, anicteric ENT: normal inspection external ears, nose, mucous membranes moist Neck: supple, trachea midline Lungs: clear, no respiratory distress, no wheezing/rhonchi/rales CV: RRR, no murmur, no pretibial edema Abd: normal BS, soft, non-tender Ext: no cyanosis, no calf tenderness Neuro: A&O x 3, no focal deficits noted, normal affect Skin: warm, dry Results & Data Results & Data Vital Signs (Past 12 Hours) Vital Signs Temp Pulse Resp BP Pulse Ox O2 Del Method 08/31/24 07:55 36.8 C 63 18 121/66 97 Room Air Laboratory Results Short CBC 08/30/24 08/30/24 08/31/24 Range/Units 21:33 22:18 05:52 WBC Cancelled 10.52 9.71 Hgb Cancelled 9.6 L D 8.4 L Hct Cancelled 28.7 L 25.7 L Plt Count Cancelled 216 175 08/31/24 Range/Units 10:43 WBC Hgb 8.8 L Hct 26.9 L Plt Count BMP 08/30/24 08/31/24 21:33 05:52 Sodium 139 141 Potassium 3.6 3.7 Chloride 105 109 H Carbon Dioxide 27 30 BUN 25 H 18 Creatinine 0.84 0.76 Glucose 82 97 Calcium 8.7 7.6 L (1) Hematuria Hematuria type: gross Qualified Code(s): R31.0 - Gross hematuria
[2024-08-31] MEDS ORDERED: SODIUM CHLORIDE 0.9% 100 ML IV PRN (14:02)
[2024-08-31 15:43] VITALS: RESP 16
[2024-08-31] MEDS: TAMSULOSIN HCL 0.4 MG CAP PO SCH (21:06)
[2024-09-01 07:00] VITALS: BP 110/65; PULSE 67; TEMP 97.9; O2SAT 98
[2024-09-01 07:32] LABS: Hematocrit (blood only) 29.7 % (42.0-52.0); Hemoglobin 9.4 g/dl (14.0-18.0); Immature Granulocytes # (auto) 0.01 K/uL (0.01-0.20); Immature Granulocytes % (auto) 0.1 %; Mean Corpuscular Hemoglobin 30.8 pg (25.0-34.0); Mean Corpuscular Volume 97.4 fL (80.0-100.0); Platelet Count 203 K/uL (130-400); RDW Standard Deviation 46.2 fL (36.4-46.3); Red Blood Count 3.05 M/uL (4.70-6.10); White Blood Count 7.02 K/ul (4.8-10.8)
[2024-09-01 07:50] LABS: Anion Gap 2.0 (3-11); Blood Urea Nitrogen 12.0 mg/dl (6-23); Calcium 8.2 mg/dl (8.6-10.3); Carbon Dioxide 30.0 mmol/L (21-32); Chloride 109.0 mmol/L (98-107); Creatinine Clr Calc Pharmacy 100.6 ml/min; Glucose 89.0 mg/dl (70-99(Fasting)); Magnesium 1.9 mg/dl (1.7-2.4); Potassium 3.9 mmol/L (3.5-5.1); Sodium 141.0 mmol/L (136-145)
--- NOTE | 2024-09-01 08:03 | Hospitalist Progress Note ---
Date of Service September 01, 2024 Assessment & Plan (1) Hematuria: Plan: Acute Blood Loss Anemia 64-year-old male with past medical history significant for prediabetes, hypertension, GERD, Waldenstrm's macroglobulinemia, presented to ER multiple times over past 48 hours for hematuria and urinary retention. S/P bigger three-way Orosco catheter. Yesterday urology hand irrigated and since with decreased hematuria Today urine appears clear yellow without further hematuria Hgb improved from yesterday at 9.4 (8.4 yesterday and Hgb: 13 on 08/28/24). Denies any dizziness, SOB, CP Urology on board. Did not recommend urgent urologic intervention at this time. Today urology removed Orosco cath and pt passed voiding trial. Urology recommends outpatient follow-up and their office will schedule. Urine culture negative Continue tamsulosin, finasteride #History of Waldenstrm's macroglobulinemia Holding aspirin for now with above hematuria #Prediabetes A1c: 5.4 #Hypertension Stable Continue losartan, HCTZ DVT prophylaxis SCDs Dispo: Planned for discharge home today Pt was seen and care coordinated with Dr Shah. Admission and Anticipated Discharge Date Admission Date: August 30, 2024 Supervising Physician Co-Signing Physician Notes Pt seen and examined by me, care coordinated w/ CHIKI Marsh, pls refer to her note above for further detail. Pt currently lying in bed in [facility]. Dr. Christianson (urology) also present at the bedside and discussed with. Pt denies any fever, chills, chest pain, abd. pain, overall he feels well. Hgb 9.4, improved from yesterday. Pt passed voiding trial w/ urology and will be discharged home with urology follow up. MD Alyssa Subjective Patient seen and examined sitting up in bed. States is doing well today. Reports urine color is yellow and doesn't appear to have further bleeding. Denies any complaints at this time. Is eager to be discharged home. Denies fever/chills, N/V/D/C, BAUTISTA, dizziness, CP, SOB, abdominal pain, weakness. Review of Systems Review of Systems: All systems reviewed & are unremarkable except as noted in HPI & below Physical Exam Physical Exam: General: no distress, WDWN Head: normocephalic, atraumatic Eyes: conjunctiva non-injected, anicteric ENT: normal inspection external ears, nose, mucous membranes moist Neck: supple, trachea midline Lungs: clear, no respiratory distress, no wheezing/rhonchi/rales CV: RRR, no murmur, no pretibial edema Abd: normal BS, soft, non-tender Ext: no cyanosis, no calf tenderness Neuro: A&O x 3, no focal deficits noted, normal affect Skin: warm, dry Results & Data Results & Data Vital Signs (Past 12 Hours) Vital Signs Temp Pulse Resp BP Pulse Ox O2 Del Method 09/01/24 07:00 36.6 C 67 16 110/65 98 Room Air 08/31/24 20:47 37.1 C 57 L 16 124/72 100 Room Air Laboratory Results Short CBC 09/01/24 Range/Units 07:13 WBC 7.02 (4.8-10.8) K/ul Hgb 9.4 L (14.0-18.0) g/dl Hct 29.7 L (42.0-52.0) % Plt Count 203 (130-400) K/uL BMP 09/01/24 07:13 Sodium 141 Potassium 3.9 Chloride 109 H Carbon Dioxide 30 BUN 12 Creatinine 0.76 Glucose 89 Calcium 8.2 L (1) Hematuria Hematuria type: gross Qualified Code(s): R31.0 - Gross hematuria
[2024-09-01 08:37] LABS: Hemoglobin A1C 5.4 % (4.5-5.6)
--- NOTE | 2024-09-01 08:58 | Urology Progress Note ---
Date of Service September 01, 2024 Assessment & Plan (1) Hematuria: (2) Acute urinary retention: Plan 64-year-old male with a history of recurrent hematuria with a negative TURBT pathology who was admitted to the hospital due to recurrent bounce backs to the ED with retention and clot obstruction. Urine has remained clear and he does not require any irrigation since I irrigated his bladder yesterday Discussed options including going home today with catheter versus void trial. He understands that if he passes a void trial, he could go back into retention when he is at home Patient wanted to try a void trial. Bladder was filled with 250 cc and catheter was removed. Patient did pass the void trial Stable for discharge home from a urologic perspective. He was given antibiotics in the ER last week and I do not think he needs to continue these A message has previously been set up to schedule follow-up with Dr. Tripp in clinic Admission and Anticipated Discharge Date Admission Date: August 30, 2024 Subjective No acute issues overnight. Afebrile with stable vitals. Labs today show a white blood cell count of 7.02, hemoglobin of 9.4, and creatinine of 0.76. Urine culture is no growth up to this point. No issues with catheter overnight. Patient would like to go home without catheter if possible Physical Exam Physical Exam: General: Alert and oriented, no acute distress HEENT: Normocephalic, mucous membranes moist Pulmonary: Nonlabored respirations Abdomen: Nondistended : Orosco catheter draining rica urine in the tubing. Extremities: Moves all 4 spontaneously Neuro: No gross deficits Skin: Warm, dry, no rashes noted Results & Data Vital Signs (Past 12 Hours) Vital Signs Temp Pulse Resp BP Pulse Ox O2 Del Method 09/01/24 07:00 36.6 C 67 16 110/65 98 Room Air PG Care Time/CCT Total # of Minutes Spent Total Time Spent with Patient: Total time spent is greater than 50% in coordination of care (as documented) at patient's floor/unit and/or counseling patient: Coding Level of Care Code 37719 SUB INP/OBS CARE 2/35MIN Diagnoses Hematuria R31.0 Hematuria type: gross Acute urinary retention R33.8 (1) Hematuria Hematuria type: gross Qualified Code(s): R31.0 - Gross hematuria
--- NOTE | 2024-09-01 10:48 | Discharge Summary ---
Date of Service September 01, 2024 Admission HPI Per Admitting Provider 64-year-old male with past medical history significant for prediabetes, hypertension, GERD, Waldenstrm's macroglobulinemia, history of kidney stones comes because of hematuria. In June 2024 patient because of hematuria had transurethral resection and urethral dilatation. 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 Urology discussed options and currently placed him on Proscar and Flomax. After that patient was doing okay until few days back. On 08/28/2024 patient was in the ER for hematuria. 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 In the ER three way Orosco catheter was placed and dose of Rocephin was given because of UTI on UA. But the patient refused to keep Orosco catheter and it was taken out and discharged from ER to follow-up with urology . He was back to the ER on 08/29/2024 again with hematuria and unable to micturate. Orosco catheter was placed with immediate resolution of his symptoms. Gross hematuria was noted. Orosco was irrigated without difficulty. As he did okay he was discharged with Orosco catheter to follow-up with his urology. Patient again came to the ER on 08/30/2024 because he was micturating out of the catheter and was concerned about clotting or malfunction of the catheter. Catheter was removed and new Orosco was placed and bladder irrigation was performed and several clots were removed. He did okay and got discharged to continue his antibiotics and to hold his aspirin for 5 days. Patient came back on the same day today 08/30/2024 evening again with hematuria. ER discussed with the urology and was advised for bigger three-way catheter and if any obstruction develops to start on CBI. Patient currently status post 22fr three-way catheter and hematuria can be seen. Denies any ab dominal pain. Denies any fevers. Denies any nausea. No chest pain or shortness of breath. No cough. Resting comfortably and hemodynamically stable. Past medical history. As mentioned above Past surgical history. Colonoscopy. Laparoscopic repair of inguinal hernia. Tonsillectomy. TURP Social history. . Quit smoking 1996. Alcohol rarely. No drug use. Family history. Father had CHF. Hypertension. Thyroid disorder. Mother dementia. Diabetes. Stroke. Daughter has thyroid disorder. Admission Exam Per Admitting Provider General: no distress, WDWN Head: normocephalic, atraumatic Eyes: conjunctiva non-injected, anicteric ENT: normal inspection external ears, nose, mucous membranes moist Neck: supple, trachea midline Lungs: clear, no respiratory distress, no wheezing/rhonchi/rales CV: RRR, no murmur, no pretibial edema Abd: normal BS, soft, non-tender Ext: no cyanosis, no calf tenderness Neuro: A&O x 3, no focal deficits noted, normal affect Skin: warm, dry Principal Diagnosis Gross Hematuria Acute Blood loss anemia Discharge Exam General: no distress, WDWN Head: normocephalic, atraumatic Eyes: conjunctiva non-injected, anicteric ENT: normal inspection external ears, nose, mucous membranes moist Neck: supple, trachea midline Lungs: clear, no respiratory distress, no wheezing/rhonchi/rales CV: RRR, no murmur, no pretibial edema Abd: normal BS, soft, non-tender Ext: no cyanosis, no calf tenderness Neuro: A&O x 3, no focal deficits noted, normal affect Skin: warm, dry Discharge Data Allergies Allergy/AdvReac Type Severity Reaction Status Date / Time [id number] Reductase Allergy Intermediate MUSCLE Verified 08/30/24 20:53 Inhibitor ACHES [Iqidapr-Utk-Gwe Reductase Inhibitor] Consultations 08/30/24 21:04 ED Decision to Admit Stat 08/31/24 08:00 Consult Urology Routine Hospital Course (1) Hematuria: Acute Blood loss anemia 64-year-old male with past medical history significant for prediabetes, hypertension, GERD, Waldenstrm's macroglobulinemia, presented to ER multiple times over past 48 hours for hematuria and urinary retention. A bigger three-way Orosco catheter was placed. His home aspirin was held. Urology was consulted and hand irrigated catheter with eventual clearing of hematuria. No urgent surgical intervention was recommended. On 09/01/24 no further hematuria was noted and urology removed catheter and patient passed voiding trial. His urine culture was negative. He had noted progressive anemia with lowest Hgb: 8.4 on 08/31/24 and improved Hgb of 9.4 on 09/01/24. Urology plans to follow up outpatient. Patient will continue his home tamsulosin, finasteride. #History of Waldenstrm's macroglobulinemia Aspirin was on hold. Would recommend holding for another week until follow up with Dr Lynch, oncology #Prediabetes A1c: 5.4 #Hypertension Stable Continue home losartan, HCTZ Pt was seen and care coordinated with Dr Shah. I spent a total of 30minutes reviewing notes, outpatient records, labs, medication, coordinating, documenting and providing care for this patient excluding time spent in the performance of separately billed services and excluding time spent by another provider/QHP. Total Time Total Time Spent Total Time Spent (In Minutes): 30 Discharge Plan Discharge Items Patient Disposition: Home - Self-Care Reason For Visit: HEMATURIA Discharge Diagnosis: Hematuria Condition on Discharge: Good Activity: As commented below Activity Comment: Would avoid heavy lifting Non-emergency contact: Primary Care Provider and Urologist Call non-emergency contact if: your symptoms worsen and you have a fever Follow-up/Referrals: James William MD [Primary Care Provider] - Diet: Regular Addtl Attending Provider Instructions: MEDICATION CHANGES: Your aspirin has been held. Would hold aspirin for another week until follow up with Dr Lynch to further discuss. SUMMARY OF TEST RESULTS: You were admitted to hospital due to hematuria (bloody urine) and urinary retention. A larger catheter was placed. Urology saw you and irrigated the catheter. You had improvement with clearing of urine and no further bleeding. Today urology flushed catheter. Your catheter was removed and you were able to urinate on your own Will need to follow up with urology. Urology will set up your follow up Your labs showed anemia (low blood counts). This was stable for past 2 days and slightly improved. You will need to follow up with PCP in one week and to have repeat labs in one week to recheck your blood counts PENDING TEST RESULTS: None RECOMMENDATIONS FOR FOLLOW-UP: Please follow up with urology. Urology will set up your appointment. If you do not get call with appointment please call office. [facility] [address] [place] [address] [place] [address] Please keep your follow up with hematology, Dr Lynch on 09/11/24 Please follow up with primary care provider in one week OTHER INSTRUCTIONS: Seek medical attention if you have: * temperature above 101 * chest pain or trouble breathing * abdominal pain, nausea, vomiting * diarrhea, dark stools or bloody stools * any unanswered questions or concerns Call 911 if symptoms are severe. It was a pleasure taking care of you. Call if you have any questions or p roblems. You can reach a [facility] hospitalist on duty at [facility] 24 hours a day by calling [phone]. Take care of yourself. Pending Studies at Discharge: No Stand-Alone Forms: My [facility], Smoking Cessation Medications and DC Order Prescriptions: Continued finasteride 5 mg tablet 5 mg PO DAILY Qty: 90 3RF losartan 25 mg Tablet 25 mg PO QAM hydrochlorothiazide 12.5 mg Tablet 12.5 mg PO QAM Hold Instructions: Resume on 09/03/24. discuss with your primary care doctor when to resume it multivitamin with iron Tablet 1 tab PO QAM tamsulosin 0.4 mg capsule 0.4 mg PO HS Qty: 30 0RF Held aspirin 81 mg Tablet,Delayed Release (Dr/Ec) 81 mg PO QPM Hold Instructions: Resume on 09/08/24. Hold for one week Discontinued cefdinir 300 mg capsule 300 mg PO BID 10 Days Qty: 20 0RF Rx Instructions: STARTED 08/29/24 WITH PM DOSE Discharge Orders: Discharge Order (Routine); Ordered 09/01/24 Ordered By: Jackie Melendrez/Other Patient Handouts: What is Hematuria? Admission Data Admit Date/Time: 08/30/24 22:22 Attending Provider: Blade Shah Admit Provider: Omer Leon Primary Care Provider: James William I. Other Providers: Omer Leon; Juan Carlos Calle; Erica Quintanilla; Conner Tripp; Tequila Nuñez; Kristofer Luz; Nara Lovell; Benito Angeles; Martina Huggins; Sergey Sims; Ayan Christianson Other Interventions: Discharge Summary Assessment (RN) Last Done: 09/01/24 10:44 Supervising Physician Co-Signing Physician Notes Pt seen and examined by me, care coordinated w/ CHIKI Marsh, pls refer to her note above for further detail. Pt currently lying in bed in [facility]. Dr. Christianson (urology) also present at the bedside and discussed with. Pt denies any fever, chills, chest pain, abd. pain, overall he feels well. Hgb 9.4, improved from yesterday. Pt passed voiding trial w/ urology and will be discharged home with urology follow up. MD Alyssa
== END 2024-09-01 12:05 | disposition home or self-care (01) | DRG 696 ==
LOC: ED 20:19 → 3W 22:22